=== PATIENT | female | born 1990 | race Caucasian/White ===

== ENCOUNTER → 2023-02-09 11:22 | Outpatient (CLI) | payer OTHER, MEDICAID, SELFPAY ==
[2023-02-09 11:47] LABS: Add Manual Diff / Slide Review NO; Basophils Absolute Auto 100 /uL (0-100); Basophils Percent Auto 0.5 % (0-2); Eosinophils Absolute Auto 100 /uL (0-450); Eosinophils Percent Auto 0.5 % (2-4); Hematocrit 36.8 % (36-46); Hemoglobin 12.8 g/dL (12.0-16.0); Lymphocytes Absolute Auto 2600 /uL (1100-4500); Lymphocytes Percent Auto 21.2 % (25-40); Mean Corpuscular HGB Conc 34.8 % (30-36); Mean Corpuscular Hemoglobin 31.3 PG (26-34); Monocytes Absolute Auto 600 /uL (0-900); Monocytes Percent Auto 5.1 % (3-14); Neutrophils Absolute Auto 9100 /uL (1500-7000); Neutrophils Percent Auto 72.7 % (50-75); Platelet Count 303 X10^3/uL (150-400); Red Blood Cell Count 4.09 X10^6/uL (4.0-5.2); Red Cell Distribution Width 13.8 % (11.6-14.8); White Blood Cell Count 12.5 X10^3/uL (4.5-11.0)
[2023-02-09 16:34] LABS: Hepatitis B Surface Antigen NEGATIVE s/c (NEGATIVE); Rubella Antibody IgG 10.5 IU/mL (>15)
[2023-02-09 16:48] LABS: HIV 1 & 2 Ab/Ag 4th Gen Combo NEGATIVE (NEGATIVE); Hep C Virus Ab w/Reflex Quant NEGATIVE s/c (NEGATIVE)
[2023-02-10 07:51] LABS: RPR Screen Non Reactive (Non Reactive)
[2023-02-10 10:13] LABS: Varicella IgG Antibody 1129 index (Immune >165)
== END ==
PROVIDERS: Referring Provider Obstetrics & Gynecology; Visit Provider Obstetrics & Gynecology
DX: Z34.80 Encounter for supervision of other normal pregnancy, unspecified trimester (principal)
CPT/HCPCS: 36415; 80055; 86787; 86803; 86850; 86900; 86901; 87086; 87389

== ENCOUNTER → 2023-02-24 10:18 | Outpatient (CLI) | payer OTHER, MEDICAID, SELFPAY ==
--- NOTE | 2023-02-24 10:21 | DI.US.S_ITS ---
PROCEDURE: US OB >= 14 WEEKS FETUS INDICATIONS: ANATOMY OUTSIDE/PRIOR DATING DATA: Last menstrual period (LMP): 10/08/2022. LMP-based estimated date of delivery (MARCIAL): 07/15/2023 The calculations are made using the clinical MARCIAL of 07/15/2023. TECHNIQUE: Real-time scanning was performed of the fetus, with image documentation and biometric measurements. Endovaginal scanning: Not performed COMPARISON: None. FINDINGS: General: A single living intrauterine gestation is present. Presentation: Oblique with head towards the right upper quadrant. Placenta: Placental position is posterior , without previa. Amniotic fluid index: 13.5 cm, normal range is 5-24 cm. Single deepest vertical pocket is 3.9 cm. heart rate: 132 beats per minute. Maternal cervical canal: 4.2 cm long. Normal lower limit is 2.5 cm. biometrics: Biparietal diameter: 4.6 centimeters, 19 weeks and 5 days Head circumference: 17.5 centimeters, 20 weeks and 0 days Abdominal circumference: 15.6 centimeters, 20 weeks and 6 days Femur length: 3.0 centimeters, 19 weeks and 2 days Clinically estimated gestational age: 19 weeks and 6 days Composite gestational age from present scan: 20 weeks and 0 days Estimated weight and percentile: 330 grams, 58th percentile Anatomic survey: Neuro: Ventricles are non-dilated at less than 10 mm. Cisterna magna is normal at 3-11 mm. Cerebellum is normal in size and morphology. Nuchal skin fold: Normal at less than 6 mm between 14-21 weeks gestational age. Face: Nose and lips, facial profile are normal. Spine: No evidence for spina bifida. Heart: 4-chambered heart is present, with normal ventricular outflow tracts. Diaphragm: Diaphragm is intact. Stomach: Left-sided stomach is present. Kidneys: No hydronephrosis. Normal is less than 5 mm in 2nd trimester, less than 7 mm in 3rd trimester. Cord: 3-vessel cord has orthotopic insertion. Bladder: Normal in size. Extremities: All 4 extremities identified. IMPRESSION: 1. Single live intrauterine at 20 weeks and 0 days. 2. Normal anatomic survey. We strive to produce accurate, complete, and clear reports of imaging services. To assist us in improving patient care, this report was composed using standard report templates and voice recognition software. Therefore, it may contain abnormal punctuation, insertions and/or omissions. Occasional wrong-word or sound-alike substitutions may occur. Though we review the report and make efforts to correct it, we do recommend that the report be read carefully in proper context to recognize any text inaccuracies. Dictated by: Baltazar Castano M.D. on 02/24/2023 at 15:15 Approved by: Baltazar Castano M.D. on 02/24/2023 at 15:19
== END ==
PROVIDERS: Referring Provider Student in an Organized Health Care Education/Training Program; Visit Provider Student in an Organized Health Care Education/Training Program
DX: Z34.82 Encounter for supervision of other normal pregnancy, second trimester (principal); Z3A.20 20 weeks gestation of pregnancy
CPT/HCPCS: 76811

== ENCOUNTER → 2023-04-14 07:33 | Outpatient (CLI) | payer OTHER, SELFPAY ==
[2023-04-14 08:58] LABS: Hematocrit 35.2 % (36-46); Hemoglobin 11.9 g/dL (12.0-16.0)
[2023-04-14 09:30] LABS: GTT (PREG) 1 Hour PP 50gm Dose 151 mg/dL (76-139)
== END ==
PROVIDERS: Referring Provider Student in an Organized Health Care Education/Training Program; Visit Provider Student in an Organized Health Care Education/Training Program
DX: Z34.80 Encounter for supervision of other normal pregnancy, unspecified trimester (principal)
CPT/HCPCS: 36415; 82950; 85014; 85018

== ENCOUNTER → 2023-04-21 07:57 | Outpatient (CLI) | payer OTHER, SELFPAY ==
[2023-04-21 09:53] LABS: Glucose 1 Hour Gest 159 mg/dL (76-180)
[2023-04-21 12:36] LABS: Glucose Tol Interp,Gestational INTERPRETATION
[2023-04-21 12:41] LABS: Glucose 2 Hour Gest 125 mg/dL (76-155)
[2023-04-21 14:06] LABS: Glucose 3 Hour Gest 60 mg/dL (76-140)
[2023-04-21 14:16] LABS: Glucose Fasting Gestational 84 mg/dL (76-95)
== END ==
PROVIDERS: Referring Provider Student in an Organized Health Care Education/Training Program; Visit Provider Student in an Organized Health Care Education/Training Program
DX: O99.810 Abnormal glucose complicating pregnancy (principal)
CPT/HCPCS: 82951; 82952

== ENCOUNTER → 2023-06-18 16:34 | Outpatient (CLI) | payer OTHER, SELFPAY ==
[2023-06-20 11:03] LABS: Strep Grp B PCR NEG for Grp B Strep
== END ==
PROVIDERS: Visit Provider Obstetrics & Gynecology
DX: Z34.83 Encounter for supervision of other normal pregnancy, third trimester (principal); Z3A.36 36 weeks gestation of pregnancy
CPT/HCPCS: 87653

== ENCOUNTER 2023-06-28 17:39 | Outpatient (CLI) | payer OTHER, SELFPAY ==
[2023-06-28] MEDS: ACETAMINOPHEN 325 MG TABLET 650 MG PO (18:24)
== END 2023-06-28 19:38 | disposition home or self-care (01) ==
LOC: OB 06-30 06:17
PROVIDERS: Referring Provider Obstetrics & Gynecology; Visit Provider Obstetrics & Gynecology
DX: O21.9 Vomiting of pregnancy, unspecified (principal); O26.893 Other specified pregnancy related conditions, third trimester; R19.7 Diarrhea, unspecified; Z3A.37 37 weeks gestation of pregnancy
CPT/HCPCS: 59025; 96360; G0378; G0379

== ENCOUNTER 2023-07-07 22:02 | Inpatient (IN) | payer OTHER, SELFPAY ==
[2023-07-07] MEDS: fentaNYL 100 MCG/2 ML INJ 50 MCG IV (22:29)
[2023-07-07 22:41] LABS: Add Manual Diff / Slide Review NO; Basophils Absolute Auto 100 /uL (0-100); Basophils Percent Auto 0.5 % (0-2); Eosinophils Absolute Auto 100 /uL (0-450); Eosinophils Percent Auto 0.3 % (2-4); Hematocrit 41.5 % (36-46); Hemoglobin 14.2 g/dL (12.0-16.0); Lymphocytes Absolute Auto 4500 /uL (1100-4500); Lymphocytes Percent Auto 21.4 % (25-40); Mean Corpuscular HGB Conc 34.2 % (30-36); Mean Corpuscular Hemoglobin 31.4 PG (26-34); Mean Corpuscular Volume 91.7 fL (80-100); Monocytes Absolute Auto 1500 /uL (0-900); Monocytes Percent Auto 7.1 % (3-14); Neutrophils Absolute Auto 14900 /uL (1500-7000); Neutrophils Percent Auto 70.7 % (50-75); Platelet Count 326 X10^3/uL (150-400); Red Blood Cell Count 4.52 X10^6/uL (4.0-5.2); Red Cell Distribution Width 13.6 % (11.6-14.8); White Blood Cell Count 21.1 X10^3/uL (4.5-11.0)
--- NOTE | 2023-07-07 23:14 | P.HPOB_ITS ---
OB HPI Date/Time Date of admission: 07/07/23 Date Patient Seen: 07/07/23 Time Patient Seen: 23:14 History of Present Condition Chief complaint: observation of labor MARCIAL Calculator 2 Estimated Delivery Date Method Current WG Current Estimate 07/15/23 LMP (Certain) 39w 0d Other Estimates 07/18/23 Ultrasound #1 38w 4d Estimated Gestational Age (weeks): 38+6 : 4 Para: 1 care: good care, initiated at week # (7), number of visits (7) and pounds weight gain (47) Dating criteria OB: LMP confirmed by 1st trimester US Ultrasounds: normal 1st trimester US and normal mid trimester US Obstetrical complications: none Medical complications OB: none Preadmission Labs Last OB Lab Results: 2 Blood Type O Positive 07/07/23 22:10 Antibody Screen Negative 07/07/23 22:10 Hematocrit 41.5 % (36-46) 07/07/23 22:10 Hemoglobin 14.2 g/dL (12.0-16.0) 07/07/23 22:10 Hepatitis B Surface Antigen Negative s/c (NEGATIVE) 02/09/23 11 :36 Hepatitis C Antibody Negative s/c (NEGATIVE) 02/09/23 11:36 Rubella Antibody 10.5 IU/mL (>15) L 02/09/23 11:36 Varicella-Zoster IgG Antibody 1129 index (Immune >165) 02/09/23 11:36 Glucose 1 Hour 151 mg/dL (76-139) H 04/14/23 08:44 Group B Streptococcus (PCR) Neg for grp b strep 06/18/23 16:34 -: PAP smear: Normal (2020) Prior (ies) Past Pregnancies Del. Date GA/Weeks Labor Lgth Wt Sex Route Outcome Anesthesia Place Delv Breastfeed Preg Comp Name 06/03/19 9 spontaneous 01/02/20 7 spontaneous 03/31/21 39 4 6 lb 6 oz Female vaginal live - full ter m epidural [place], [place] pumped 6 months other Ste[place] Delivery Date: 06/03/19 Last Updated by: Whitney Ramirez RN missed AB, needed D&C, then hysteroscopy w/ adhesions Delivery Date: 01/02/20 Last Updated by: Whitney Ramirez RN Needed miso to pass, pathology showed Down's Delivery Date: 03/31/21 Last Updated by: Whitney Ramirez RN suspected IUGR, although normal wt Evaluation Evaluation Baseline heart rate: 125 Variability: Moderate (11-25) monitor accelerations: Present Monitor Decelerations: Variable Contraction Frequency (minutes): 3 Uterine Contraction Intensity: Strong/Firm Status: Category l Dilation (cm): 10 Effacement (%): 100 station: +2 PFSH Medical History (Updated 06/04/23 @ 16:33 by Mari Young MD) 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 Seasonal allergies Asthma Vaginal delivery Surgical History (System 02/01/23 @ 10:03 by Eri Montoya) History of carpal tunnel release of both wrists (~06/2021) [place] teeth extracted (~2021) History of hysteroscopy Family History (System 02/01/23 @ 10:03 by Eri Montoya) Father T-cell lymphoma Ulcerative colitis Mother Osteoporosis Grandfather Dementia Grandmother Dementia Parkinson's disease Grandfather Heart attack Brother Healthy adult Sister Healthy adult Social History (System 02/01/23 @ 10:03 by Eri Montoya) marital status: number of children: 1 household members: spouse and children lives independently: Yes caregiver/support person: Yes housing: house pets and animals: Yes (1 dog) education level: 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 (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 doctor) 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) current occupational exposures/hazards: Yes special serenity needs: No travel history: recent (domestic only (move from [place]) seatbelt use: always helmet use: Yes water heater temp set < 120 deg: Yes working smoke detector in home: Yes fire extinguisher in home: Yes carbon monox detector in home: Yes do you feel safe at home: Yes Smoking Status: Never smoker second hand exposure: No alcohol intake: former (stopped drinking several months prior to ) substance use type: does not use during the past year weight has: other (back to below pre-baby weight at time of conception) well-balanced diet: daily or most days daily servings fruits/ve or more times/day caffeine: Yes (1 cup coffee in AM) Type(s) of exercise: walking and bicycling (stationary bike) frequency: daily duration: 45-60 minutes/day Meds Home Medications and Allergies Home Medications Medication Instructions Recorded Confirmed Type aspirin 81 mg tablet,delayed 81 mg PO DAILY 12/23/22 07/07/23 History release (Adult Aspirin Regimen) fluticasone propionate 44 1 puff inhalation BID 12/23/22 07/07/23 History mcg/actuation HFA aerosol inhaler (Flovent HFA) fluticasone propionate 50 1 spray intranasal BID PRN 12/23/22 07/07/23 History mcg/actuation nasal spray,suspension (Flonase Allergy Relief) vit no.95-ferrous 1 tab PO DAILY 12/23/22 07/07/23 History fumarate 28 mg-folic acid 800 mcg tablet ( Multivitamins) buspirone 5 mg tablet 5 mg PO BID #60 tabs 05/17/23 07/07/23 Rx Allergies Allergy/AdvReac Type Severity Reaction Status Date / Time No Known Drug Allergies Allergy Unverified 07/07/23 13:07 OB Exam Narrative Exam Narrative: Generally: Patient is very uncomfortable with contractions. Lying on her side, having epidural placed Fundal height: 38 cm Estimated weight: 7 lb Extremities: Trace edema Objective Labs 07/07/23 22:10 Labs: Laboratory Results - last 24 hr 07/07/23 22:10 WBC 21.1 H RBC 4.52 Hgb 14.2 Hct 41.5 MCV 91.7 MCH 31.4 MCHC 34.2 RDW 13.6 Plt Count 326 Neut % (Auto) 70.7 Lymph % (Auto) 21.4 L [place] % (Auto) 7.1 Eos % (Auto) 0.3 L Baso % (Auto) 0.5 Neut # (Auto) 04695 H Lymph # (Auto) 4500 [place] # (Auto) 1500 H Eos # (Auto) 100 Baso # (Auto) 100 Assessment and Plan Assessment and Plan Assessment and Plan narrative: Assessment: 32-year-old 4 para 1 at 38-,6/7 weeks gestation in active labor entering second stage Plan: Expected management to spontaneous vaginal delivery Time Spent with Patient Total time spent with greater than 50% in coordination of care (as documented) at patient's floor/unit and/or counseling patient:: Greater than 35 minutes
--- NOTE | 2023-07-07 23:36 | PM.AN.REGBLK ---
Regional Block Pre-procedure PMH/ROS narrative: Asthma has not needed rescue inhaler for quite a long while per patient ASA Class: II Labs: Hct 41.5 % (36-46) 07/07/23 22:10 Plt Count 326 X10^3/uL (150-400) 07/07/23 22:10 Medications: Current Medications Generic Name Dose Route Start Last Admin Trade Name Freq PRN Reason Stop Dose Admin Carboprost Tromethamine 250 mcg 07/07/23 22:23 Carboprost 250 Mcg/Ml Ampul IM Q90M PRN Bleeding Fentanyl 50 mcg 07/07/23 22:24 Fentanyl 100 Mcg/2 Ml Inj IV Q1H PRN Pain, Severe (7-10) Oxytocin/Lactated Ringer's 30 unit in 500 mls @ 200 mls/hr 07/07/23 22:23 Oxytocin Premix IV CONT PRN Bleeding Protocol Tranexamic Acid 1,000 mg/ 100 mls @ 200 mls/hr 07/07/23 22:23 Sodium Chloride IV NOW PRN Bleeding Lactated Ringer's 1,000 mls @ 100 mls/hr 07/07/23 22:30 Lactated Ringers IV CONT REGI Lidocaine HCl 20 ml 07/07/23 22:23 Lidocaine 1% 20 Ml INJ INTRA-OP PRN Post Delivery Methylergonovine Maleate 0.2 mg 07/07/23 22:23 Methylergonovine 0.2 Mg Tablet PO Q6HR PRN Heavy Bleeding Methylergonovine Maleate 0.2 mg 07/07/23 22:23 Methylergonovine 0.2 Mg/Ml Vial IM NOW PRN Bleeding Misoprostol 800 mcg 07/07/23 22:23 Misoprostol 200 Mcg Tablet NJ NOW PRN Bleeding Misoprostol 400 mcg 07/07/23 22:23 Misoprostol 200 Mcg Tablet SL NOW PRN Bleeding Naloxone HCl 0.2 mg 07/07/23 22:23 Naloxone 0.4 Mg/Ml Vial IV Q2MIN PRN Opiate Reversal Oxytocin 10 unit 07/07/23 22:23 Oxytocin 10 Unit/Ml Vial IM NOW PRN Bleeding Allergies: Allergies Allergy/AdvReac Type Severity Reaction Status Date / Time No Known Drug Allergies Allergy Unverified 07/07/23 13:07 Procedure Insertion date: 07/07/23 Insertion time: 01:05 Prep/Local: 1% lidocaine (chloroprep) Interspace: L3-4 Patient position: lateral Needle: 18 gauge Hustead (CSE 25g pencan .3cc .25%marciane) Loss of resistance with: saline DENZEL at (cm): 7 Catheter placed at SKIN (cm): 12 Catheter in SPACE (cm): 5 Insertion: Yes CSF, No Blood, No Paresthesia with insertion, No Paresthesia with injection and No Test dose reaction Initial Medications TEST DOSE time: 10:55 TEST DOSE: 1.5% lidocaine with epinephrine 1:200k (mL): 3 BOLUS DOSE time: 11:10 BOLUS DOSE (mL): 5 BOLUS DOSE med: other (0.5% bupivicaine) Infusion INFUSION: 0.125% bupivacaine and with fentanyl 2 mcg/mL Initial rate (mL/hr): 12 Post-procedure Anesthesia date START: 07/07/23 Anesthesia time START: 10:30 Anesthesia date END: 07/07/23 Anesthesia time END: 11:47 Post-procedure Anesthesia Assessment: Yes CV function: HR/BP stable, Yes Resp function: RR/sat/airway adequate, Yes Post-op hydration adequate, Yes Pain control adequate, Yes Nausea & vomiting absent, Yes Temperature > 36 C and Yes Mental status appropriate
[2023-07-08 00:18] VITALS: BP 129/68
--- NOTE | 2023-07-08 00:24 | PM.OBPRVD ---
Labor & Delivery Delivery date: 07/07/23 Intrapartal Events: Deceleration (down to 70's with pushing) Cervical ripening method: none Induction method: none Delivery monitor: external FHT and external uterine Route of delivery: and vacuum extraction (FHR in the 70's, vertex at +3 station) Indication for instrumentation: nonreassuring FHR tracing Episiotomy description: None L&D Laceration Description: None Quantitative Blood Loss: 200 Anesthesia Type: Spinal and Epidural Complications: None Narrative: Patient complete and pushed x 3 contractions. A vacuum was placed due to decel down to 70's with pushing. With one pull, the vertex was delivered over an intact perineum at 2335. No nuchal cord. The remainder of the body delivered without difficulty and was placed on mom's abdomen. Pitocin was given in the IVF's. The cord was double clamped and cut after it stopped pulsing. Cord bloods were obtained. The placenta delivered intact with a 3 Vessel cord at 2344. The fundus was massaged to firm. No lacerations noted. Apgars 9 at 1 minute and 9 at 5 minutes. . QBL: 200cc. Epidural/Spinal. Mom and stable to recovery. [place] Baby 1: gender: Male Presentation: vertex Position: Left Occiput Anterior Placenta delivery description: Spontaneous Cord Vessel Description: 3 Vessels score (1 min): 9 score (5 min): 9 weight: 7 lb 13.7 oz Plan for aftercare: Routine care
[2023-07-08] MEDS: IBUPROFEN 600 MG TABLET PO ×3 (04:19→16:18)
[2023-07-08] MEDS: DOCUSATE 100 MG CAPSULE PO (09:52)
[2023-07-08] MEDS: PRENATAL VIT,CALC/IRON/FOLIC 1 TABLET 1 TAB PO (09:52)
[2023-07-08] MEDS: ACETAMINOPHEN 325 MG TABLET 650 MG PO ×2 (09:52→16:19)
--- NOTE | 2023-07-11 17:54 | PM.OBDS.1 ---
Discharge Providers Provider Date of admission: 07/07/23 22:02 Discharge Date: 07/08/23 Primary care physician: Doctor Perla MD Consults: 07/07/23 22:23 Consult to Anesthesiology Urgent Comment: Consulting Provider: Anesthesiologist Reason for consultation: Epidural Discharge provider: Ana Medina MD Summary Hospital Course Date Patient Seen: 07/08/23 Time Patient Seen: 17:00 Diagnoses: 38+6 weeks gestation Precipitous labor and delivery Spontaneous vaginal delivery Hospital Course: Patient is a 32 year old who presented on 07/07/23 in active labor at 7-8 cm dilated. She received an epidural/spinal for pain management. She ruptured membranes during the epidural. Once she was comfortable, she began pushing. During pushing, the FHR dropped to the 70's. A vacuum was placed and baby delivered with one push. The remainder of the delivery was uncomplicated. Her course was unremarkable and she was discharged to home on 07/08/23. Peripartum Data Infant Delivery Method: Assisted Delivery (vacuum) Laceration Description: None Episiotomy description: None Procedures: Spinal/epidural analgesia Vacuum assisted vaginal delivery complications: none 1: Gender: Male Disposition of : home Status at Discharge Cognitive/behavioral status at discharge: oriented Functional status at discharge: independent ambulation Overall status at discharge: patient is progressing back to baseline Time Spent with Patient Time attestation: Total time spent providing and/or coordinating discharge services: Time spent: Less than 30 minutes Objective Labs 07/07/23 22:10 Exam Narrative Exam Narrative: Gen: NAD Fundus: Firm U/-1 Ext: Trace edema, negative Anson's Discharge Plan Discharge Plan Patient Disposition: Home Provider Discharge Comment: Please review the written instructions you received when you were discharged from the hospital. Your follow-up appointment with Dr. Medina will be in 6 weeks and we look forward to seeing you then. If however in the meanwhile you have any questions, concerns, or other issues, please contact the office either by phone at [phone], or via the patient portal. Discharge orders & Medications Prescriptions: Continued buspirone 5 mg tablet 5 mg PO BID Qty: 60 1RF fluticasone propionate [Flovent HFA] 44 mcg/actuation HFA aerosol inhaler 1 puff inhalation BID Rx Instructions: administer with spacer fluticasone propionate [Flonase Allergy Relief] 50 mcg/actuation spray,suspension 1 spray intranasal BID PRN Rx Instructions: administer into each nostril PNV cmb#95-ferrous fumarate-FA [ Multivitamins] 28 mg iron- 800 mcg tablet 1 tab PO DAILY aspirin [Adult Aspirin Regimen] 81 mg tablet,delayed release (DR/EC) 81 mg PO DAILY Follow up/Referrals: Ana Medina MD [Physician] - 08/20/23 2:00 pm (please check in at 1:45pm. ) Discharge Health Status Multidrug resistant organism: No MDRO Diet/Activity/Treatments Diet: Diet as Tolerated Activity: As tolerated Other treatments: [id number] Tylenol and/or ibuprofen may be used for additional pain relief. [id number] stool softeners and/or MiraLax may be used as needed for constipation. Skin/Wound/Dressing Care Report to your healthcare provider any signs of infection, such as:: chills, fever, increased pain, unusual drainage and unusual redness Dressing: N/A Visit Report/Discharge Packet Instructions: DI for Labor and Delivery, Vaginal , DI for and Nipple Soreness Stand Alone Forms: Discharge: Care Discharge Data Primary Care Provider: Miscellaneous,Doctor
== END 2023-07-08 18:40 | disposition home or self-care (01) | DRG 807 ==
PROVIDERS: Admitting Provider Obstetrics & Gynecology; Referring Provider Obstetrics & Gynecology; Visit Provider Obstetrics & Gynecology
DX: O76 Abnormality in fetal heart rate and rhythm complicating labor and delivery (principal); Z37.0 Single live birth; Z3A.39 39 weeks gestation of pregnancy; O62.3 Precipitate labor
CPT/HCPCS: 36415; 59050; 59400; 59409; 85025; 86850; 86900; 86901; G0379; J3010

== ENCOUNTER → 2023-11-30 12:57 | Outpatient (CLI) | payer OTHER, SELFPAY ==
[2023-11-30 13:42] LABS: Hematocrit 42.1 % (36-46); Hemoglobin 14.3 g/dL (12.0-16.0); Mean Corpuscular HGB Conc 33.9 % (30-36); Mean Corpuscular Hemoglobin 30.2 PG (26-34); Mean Corpuscular Volume 89.1 fL (80-100); Platelet Count 336 X10^3/uL (150-400); Red Blood Cell Count 4.72 X10^6/uL (4.0-5.2); Red Cell Distribution Width 13.8 % (11.6-14.8); White Blood Cell Count 8.4 X10^3/uL (4.5-11.0)
[2023-11-30 13:53] LABS: Neutrophils Absolute Manual 4116 /uL (3000-5900); RBC Morphology Normal Morphology; Total Cells Counted 100
[2023-11-30 14:01] LABS: Erythrocyte Sedimentation Rate 7 MM/HR (0-20)
[2023-11-30 14:10] LABS: Alanine Aminotransferase 21 IU/L (<35); Albumin 4.9 g/dL (3.5-5.0); Albumin Globulin Ratio 1.7 (1.0-2.8); Alkaline Phosphatase 93 U/L (38-126); Aspartate Aminotransferase 26 IU/L (14-36); BUN Creatinine Ratio 18.2 (6-22); Bilirubin Total 0.5 mg/dL (0.2-1.3); Blood Urea Nitrogen 12 mg/dL (7-17); Calcium 9.8 mg/dL (8.4-10.2); Carbon Dioxide 26 mmol/L (22-32); Chloride 102 mmol/L (98-107); Estimated Glomerular Filt Rate > 60 mL/min (>60); Globulin 2.9 g/dL (1.7-4.1); Glucose 93 mg/dL (70-100); HEMOLYSIS < 15 (0-50); Potassium 4.4 mmol/L (3.4-5.1); Sodium 139 mmol/L (137-145); Total Protein 7.8 g/dL (6.3-8.2)
[2023-11-30 14:54] LABS: TSH w/ Reflex to FT4 1.27 uIU/mL (0.47-4.68)
== END ==
LOC: LAB 12:58
PROVIDERS: PCP Family Medicine; Referring Provider Family Medicine; Visit Provider Family Medicine
DX: R59.9 Enlarged lymph nodes, unspecified (principal); R53.83 Other fatigue
CPT/HCPCS: 36415; 80053; 84443; 85025; 85651

== ENCOUNTER → 2024-02-14 15:47 | Outpatient (CLI) | payer OTHER, SELFPAY | PROVIDERS: PCP Family Medicine; Referring Provider Internal Medicine; Visit Provider Internal Medicine | DX: Z23 Encounter for immunization (principal) | CPT/HCPCS: 90471; 90656 ==

== ENCOUNTER → 2024-02-14 15:55 | Outpatient (CLI) | payer OTHER, SELFPAY ==
[2024-02-14 16:45] LABS: Influenza A - CEPHEID Flu A NEGATIVE (NEGATIVE); Influenza B - CEPHEID Flu B NEGATIVE (NEGATIVE); Respiratory Syncytial Virus Negative (Negative)
[2024-02-14 16:48] LABS: COVID-19 CEPHEID 4-PLEX PCR Negative (Negative)
== END ==
PROVIDERS: PCP Family Medicine; Visit Provider Family Medicine
DX: R06.02 Shortness of breath (principal); R05.1 Acute cough
CPT/HCPCS: 0241U

== ENCOUNTER → 2024-03-28 12:17 | Outpatient (CLI) | payer OTHER, SELFPAY ==
--- NOTE | 2024-03-28 12:20 | DI.RAD.S_ITS ---
PROCEDURE: XR LUMBAR SPINE 2-3V INDICATIONS: low back pain with paresthesias TECHNIQUE: 3 views of the lumbar spine were acquired. COMPARISON: None. FINDINGS: Bones: 5 [id number] vertebrae are present. There is normal bony alignment. Mild osteophytosis is present at L3-4. A limbus vertebra is present at L2-3. Mild anterior wedging and Schmorl's node is present at the superior L1 endplate. No vertebral body compression fractures. No suspicious bony lesions. Soft tissues: Overlying bowel gas pattern is normal. No suspicious soft tissue calcifications. An IUD is projected over the mid pelvis. IMPRESSION: Degenerative change. Anterior wedging at L1 is likely chronic in nature given the presence of a Schmorl's node. However, if there is a history of recent trauma, acute compression deformity could be considered in the differential. Dictated by: Toshia Walsh M.D. on 03/28/2024 at 15:14 Approved by: Toshia Walsh M.D. on 03/28/2024 at 15:15
== END ==
LOC: RAD 12:19
PROVIDERS: Family Provider Family Medicine; PCP Family Medicine; Referring Provider Family Medicine; Visit Provider Family Medicine
DX: M47.816 Spondylosis without myelopathy or radiculopathy, lumbar region (principal); M51.46 Schmorl's nodes, lumbar region; M54.50 Low back pain, unspecified
CPT/HCPCS: 72100

== ENCOUNTER → 2024-04-19 12:53 | Outpatient (CLI) | payer OTHER, SELFPAY ==
--- NOTE | 2024-04-19 12:54 | DI.MRI.S_ITS ---
PROCEDURE: MR LUMBAR SPINE WO CON INDICATIONS: L1 anterior wedging, r/o vertebral compression fracture TECHNIQUE: Noncontrast sagittal T1 spin echo and T2 fast echo, sagittal STIR, and T2 fast spin echo through the lumbar spine. In cases with scoliosis, additional coronal T2 fast spin echo may be performed. COMPARISON: [facility], CR, XR LUMBAR SPINE 2-3V, 03/28/2024, 12:24. FINDINGS: Image quality: Excellent. Alignment and Curvature: There is normal bony alignment. Bone Marrow: Marrow is of normal overall signal. No acute vertebral body compression fractures. Mild anterior superior endplate Schmorl's node with mild wedging appearance to the L1 vertebral body without any edema or other signs of fracture. Spinal Cord: Conus medullaris terminates at the L1-L2 level. Visualized cord demonstrates normal signal and size. Paraspinous Soft Tissues: No paravertebral masses. T12-L1: Normal appearance. L1-L2: Normal appearance. L2-L3: Normal appearance. L3-L4: Normal appearance. L4-L5: Normal appearance. L5-S1: Normal appearance. IMPRESSION: No acute compression fracture or significant degenerative finding. Dictated by: Joel Fox M.D. on 04/19/2024 at 17:48 Approved by: Joel Fox M.D. on 04/19/2024 at 17:52
== END ==
PROVIDERS: Family Provider Family Medicine; PCP Family Medicine; Referring Provider Family Medicine; Visit Provider Family Medicine
DX: S32.010A Wedge compression fracture of first lumbar vertebra, initial encounter for closed fracture (principal)
CPT/HCPCS: 72148

== ENCOUNTER 2024-06-21 09:00 | Outpatient (RCR) | payer OTHER, SELFPAY ==
--- NOTE | 2024-03-22 12:14 | PT.OIE ---
Current Diagnoses Pain in right knee (03/22/24) Pain in thoracic spine (03/22/24) Dorsalgia, unspecified (03/22/24) Weakness (03/22/24) Past Medical History (This Medical Record has been edited. 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 Action required.) History of carpal tunnel release of both wrists (~06/2021) History of hysteroscopy Corn teeth extracted (~2021) Visit Care Team Role Provider Type Era Nuno MD Attending Provider Physician Family Provider Primary Care Provider Referring Provider Specialty: Family Practice QUALITY MEASUREMENT SPECIALIST Address: [address] [place] [address], [phone] Fax: Email: [email or web address] Physical Therapy Initial Evaluation PT-OP-A Visit Information Start: 03/16/24 14:07 Freq: Status: Active Protocol: Document 03/22/24 09:01 [facility] (Rec: 03/22/24 12:02 [facility] [id number]) Out-Patient Physical Therapy Visit Information Visit Information Visit Type Initial Evaluation Visit Note 60 visits per year Visit Start Time 09:02 Visit Stop Time 09:50 Visit Number 1 Number of PRODUCT MANAGEMENT INTERNSHIP Visits 0 PT-OP-B Current Condition Start: 03/16/24 14:07 Freq: Status: Active Protocol: Document 03/22/24 09:01 [facility] (Rec: 03/22/24 09:50 [facility] [id number]) Current Condition History of Current Condition History of Current Condition Pt reports when kay stands and charts she always has an annoying feeling in LB. SHe is sitting on the floor w/the kids and its hard to do good positioning. She did an 8 week post core class and feels liek that helped. DOesn' t feel like she has a diastasis. She had bad back pain pain w/BLE pain during . She has an annoying buzzing in L glute since. She has an IUD and hasn't bled. She had her period and had awful bakc pain. She does yoga 2x/week. She sits at a yoga ball to chart. She tries to work on posture. USed to be a runner. During training for a 1/2 marathon R knee pain and lat ITB> She tried dry needling that was helpful. She is no longer breast feeding for past 2 months. She has done some OMT that helped. She has an 8 month old and 3 year old. Back pain never went back to normal after 1 year old. Vaginal births for both w /o complications. No tearing. Denies incontinence. Has bladder prolapse. Bought an [employer] pelvic floor sharepoint trainer that hasn't used yet. Hemroids 2nd time. R knee bothers her if tries to run and starts as slight ache then goes to sharp pain. Treatment Goals Patient/Caregiver Goals Running, standing at work, sitting playing w/kids PT-OP-C Subjective Start: 03/16/24 14:07 Freq: Status: Active Protocol: Document 03/22/24 09:01 [facility] (Rec: 03/22/24 09:50 [facility] [id number]) OP-PT Pain Assessment Location LBP Pain Location Details LBP Intensity 3 Scale Used Numeric (0 - 10) Description Aching Description- Other 5/10 when on period Frequency Intermittent Other Pain Aggravating Factors sit on floor, standing, Other Pain Alleviating Factors movement, yoga, walking, core work PT-OP-G Mobility & Gait Start: 03/16/24 14:07 Freq: Status: Active Protocol: Document 03/22/24 09:01 [facility] (Rec: 03/22/24 09:50 [facility] [id number]) OP Gait Assessment Comments Gait Comments dec stance time on RLE w/lat shear of pelvis; more notable w/running PT-OP-J Posture/Palpation/Skin Start: 03/16/24 14:07 Freq: Status: Active Protocol: Document 03/22/24 09:01 [facility] (Rec: 03/22/24 09:50 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 (Rec: 03/22/24 09:50 [facility] [id number]) Lumbar Spine Range of Motion Lumbar Spine Active Percentage Flexion 50 Extension 75 Rotation Left 50 Rotation Right 75 Lateral Flexion Left 40 Lateral Flexion Right 50 Comments hinge L2, pain spine R SB PT-OP-L Special Tests Start: 03/16/24 14:07 Freq: Status: Active Protocol: Document 03/22/24 09:01 [facility] (Rec: 03/22/24 09:50 [facility] [id number]) Special Tests Lumbar Spine Special Tests march Test Results positive obers Test Results positive B (R>L) Straight Leg Raise Test Results R>L flexibility but both >90 deg Fredy Test Results R hip flexor and RF tightness Slump Test Results neg B, ext sit more tension R PT-OP-M Strength Start: 03/16/24 14:07 Freq: Status: Active Protocol: Document 03/22/24 09:01 [facility] (Rec: 03/22/24 09:50 [facility] [id number]) Hip Strength Hip Manual Muscle Testing Right Flexion (L2) 4- Good- Extension (S1) 4 Good Abduction 4- Good- Adduction 4- Good- External Rotation 5 Normal Internal Rotation 5 Normal Left Flexion (L2) 3+ Fair+ Extension (S1) 4- Good- Abduction 4+ Good+ Adduction 5 Normal External Rotation 5 Normal Internal Rotation 5 Normal Knee Strength Knee Manual Muscle Testing Right Flexion (S2) 4 Good Extension (L3) 5 Normal Left Flexion (S2) 5 Normal Extension (L3) 5 Normal Ankle/Foot Strength Ankle and Foot Manual Muscle Testing Right Dorsiflexion (L4) 5 Normal Plantarflexion (S1) 5 Normal Left Dorsiflexion (L4) 5 Normal Plantarflexion (S1) 5 Normal Comments PF tested seated PT-OP-Q Treatments Start: 03/16/24 14:07 Freq: Status: Active Protocol: Document 03/22/24 09:01 [facility] (Rec: 03/22/24 12:02 [facility] [id number]) Therapeutic Exercises Standing Exercises stretch Standing Exercise Name 1. wally pose at counter 2. table pelvis drop Side bilateral Reps/Minutes 15 sec ea Self-Care/Home Management Treatment Education Other Education 8 min: edu re: posture restriction and how RLE restrictions could be related to her pelvis position, edu inc tightness and weakness on RLE and more notable deviation in gait. w/lat hip shear. discussed dec auto core engagement and postural position likely related to pain. PT-OP-T Assessment and Plan Start: 03/16/24 14:07 Freq: Status: Active Protocol: Document 03/22/24 09:01 [facility] (Rec: 03/22/24 09:50 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 LTG Duration 06/14/24 exercise Short Term Goal (STG) Pt will be able to walk carrying kids w/o pain greater than 1/10 STG Duration 05/04/24 Intermediate Goal (LTG) Pt will be able to return to running w/o LBP or R knee pain LTG Duration 06/14/24 activity Short Term Goal (STG) Pt will be able to sit to play with kids on ground w/o pain greater than 1/10. STG Duration 05/04/24 Shopping Investigator Goal (LTG) Pt will be able to stand as needed at work w/o pain >1/10. LTG Duration 06/14/24 Assessment Summary Assessment Pt presents w/SI and sacral and LB pain that started w/ of 1st child 3 years ago and has since had another child (8 months ago) w/ sciatic symptoms BLEs during but not evident now. She has hx of R ITB issues and pain in R knee that has stopped her from running which is a favored form of exercise . She has pain w/standing at work, sitting w/her kids and w /carrying her kids. 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 Dec automatic core response and poor postural alignment w/dec alignment of diaphram over pelvic floor likely limiting the stability of her spine. She would benefit from skilled PT to address these deficits and improve her function to allow her to do typical activities w/o pain and return to running. Physical Therapy Plan Frequency and Duration Frequency of Treatment 1-2x/wk Duration of treatment (weeks) 12 Plan of Care Start Date 03/22/24 Plan of Care End Date 06/14/24 Therapeutic Interventions Therapeutic Interventions Balance Training,Gait Training ,Home Exercise Program,Joint Mobilizations,Manual Therapy, Neuromuscular Re-education, Patient/Caregiver Education, Self-Care/Home Management,Soft Tissue Mobilization,Taping, Therapeutic Activities, Therapeutic Exercises Modalities Cold Pack/Ice Massage,Electric Stimulation,Hot Packs Next Visit Focus/Plan Next Note Type Treatment Note Next Visit Plan review stretches as needed, PNF for LE facilitation, innominate and sacral mobilizations, coccyx assessment and mobilization, STM to back and glutes and ITB and teach self release for glutes and ITB and quad, visceral mobs, work on release to improve alignment of spine in standing check performance w/common core exercises to assess pt form
--- NOTE | 2024-03-29 12:12 | PT.OTN ---
Current Diagnoses Pain in right knee (03/29/24) Pain in thoracic spine (03/29/24) Dorsalgia, unspecified (03/29/24) Weakness (03/29/24) Physical Therapy Treatment Note PT-OP-A Visit Information Start: 03/16/24 14:07 Freq: Status: Active Protocol: Document 03/29/24 11:30 [facility] (Rec: 03/29/24 12:12 [id number]) Out-Patient Physical Therapy Visit Information Visit Information Visit Type Treatment Note Visit Note 60 visits per year Visit Start Time 11:30 Visit Stop Time 12:10 Visit Number 2 Number of PRODUCE LABORER Visits 0 Precautions Precautions Lumbar x-ray 03/28/24: Degenerative change. Anterior wedging at L1 is likely chronic in nature given the presence of a Schmorl's node. However, if there is a history of recent trauma, acute compression deformity could be considered in the differential. PT-OP-B Current Condition Start: 03/16/24 14:07 Freq: Status: Active Protocol: Document 03/22/24 09:01 [facility] (Rec: 03/22/24 09:50 [facility] [id number]) Current Condition History of Current Condition History of Current Condition Pt reports when kay stands and charts she always has an annoying feeling in LB. SHe is sitting on the floor w/the kids and its hard to do good positioning. She did an 8 week post core class and feels liek that helped. DOesn' t feel like she has a diastasis. She had bad back pain pain w/BLE pain during . She has an annoying buzzing in L glute since. She has an IUD and hasn't bled. She had her period and had awful bakc pain. She does yoga 2x/week. She sits at a yoga ball to chart. She tries to work on posture. USed to be a runner. During training for a 1/2 marathon R knee pain and lat ITB> She tried dry needling that was helpful. She is no longer breast feeding for past 2 months. She has done some OMT that helped. She has an 8 month old and 3 year old. Back pain never went back to normal after 1 year old. Vaginal births for both w /o complications. No tearing. Denies incontinence. Has bladder prolapse. Bought an pelvic floor industrial trainer that hasn't used yet. Hemroids 2nd time. R knee bothers her if tries to run and starts as slight ache then goes to sharp pain. Treatment Goals Patient/Caregiver Goals Running, standing at work, sitting playing w/kids PT-OP-C Subjective Start: 03/16/24 14:07 Freq: Status: Active Protocol: Document 03/29/24 11:30 [facility] (Rec: 03/29/24 12:12 [facility] [id number]) OP-PT Subjective Patient Comments Patient Comments Pt how a x-ray yesterday. She thinks that changes may be from old ski injury 10 years ago. PT-OP-G Mobility & Gait Start: 03/16/24 14:07 Freq: Status: Active Protocol: Document 03/22/24 09:01 [facility] (Rec: 03/22/24 09:50 [facility] [id number]) OP Gait Assessment Comments Gait Comments dec stance time on RLE w/lat shear of pelvis; more notable w/running PT-OP-J Posture/Palpation/Skin Start: 03/16/24 14:07 Freq: Status: Active Protocol: Document 03/22/24 09:01 [facility] (Rec: 03/22/24 09:50 [facility] [id number]) Posture Evaluation Nilesh Postural Classification System Nilesh Postural Classifications Posterior/Posterior Lumbar Protective Mechanism Left AP 0 Lumbar Protective Mechanism Right AP 0 Lumbar Protective Mechanism Left PA 2 Lumbar Protective Mechanism Right PA 0 Comments Posture Comments R knee hyper ext, R toe out, inc R pronation and turn supervisor foot PT-OP-K Range of Motion Start: 03/16/24 14:07 Freq: Status: Active Protocol: Document 03/22/24 09:01 [facility] (Rec: 03/22/24 09:50 [facility] [id number]) Lumbar Spine Range of Motion Lumbar Spine Active Percentage Flexion 50 Extension 75 Rotation Left 50 Rotation Right 75 Lateral Flexion Left 40 Lateral Flexion Right 50 Comments hinge L2, pain spine R SB PT-OP-L Special Tests Start: 03/16/24 14:07 Freq: Status: Active Protocol: Document 03/22/24 09:01 [facility] (Rec: 03/22/24 09:50 [facility] [id number]) Special Tests Lumbar Spine Special Tests march Test Results positive obers Test Results positive B (R>L) Straight Leg Raise Test Results R>L flexibility but both >90 deg Fredy Test Results R hip flexor and RF tightness Slump Test Results neg B, ext sit more tension R PT-OP-M Strength Start: 03/16/24 14:07 Freq: Status: Active Protocol: Document 03/22/24 09:01 [facility] (Rec: 03/22/24 09:50 [facility] [id number]) Hip Strength Hip Manual Muscle Testing Right Flexion (L2) 4- Good- Extension (S1) 4 Good Abduction 4- Good- Adduction 4- Good- External Rotation 5 Normal Internal Rotation 5 Normal Left Flexion (L2) 3+ Fair+ Extension (S1) 4- Good- Abduction 4+ Good+ Adduction 5 Normal External Rotation 5 Normal Internal Rotation 5 Normal Knee Strength Knee Manual Muscle Testing Right Flexion (S2) 4 Good Extension (L3) 5 Normal Left Flexion (S2) 5 Normal Extension (L3) 5 Normal Ankle/Foot Strength Ankle and Foot Manual Muscle Testing Right Dorsiflexion (L4) 5 Normal Plantarflexion (S1) 5 Normal Left Dorsiflexion (L4) 5 Normal Plantarflexion (S1) 5 Normal Comments PF tested seated PT-OP-Q Treatments Start: 03/16/24 14:07 Freq: Status: Active Protocol: Document 03/29/24 11:30 [facility] (Rec: 03/29/24 12:12 [id number]) Manual Therapy Treatment Consent Patient gave verbal consent for manual Yes treatment Other Other Manual Treatments Pt in B side lying: B rib recoil, STM and positional release QL, hip rotators, vastus lateralis, TrP QL hip rotators, distal posterior vastus lateralis. TrP B anterior vastus lateralis and left hip rotators and TFL. Self-Care/Home Management Treatment Education Other Education Proper sleeping position to help with side lying position with thin pillow under ribs and PT demos flossing of lateral hip fascia for TFL, hip rotators and ITB: MWM stretch PT-OP-T Assessment and Plan Start: 03/16/24 14:07 Freq: Status: Active Protocol: Document 03/29/24 11:30 [facility] (Rec: 03/29/24 12:12 [facility] [id number]) Physical Therapy Assessment Rehab Potential Rehabilitation Potential Good Evaluation Complexity Number of Personal Factors/Comorbidities 1-2 Number of Body Systems Impaired 4 or More Clinical Presentation at Evaluation Evolving Impairments Impairments Activity Tolerance,Balance, Functional Activities, Functional Mobility,Gait,Pain, Posture,ROM,Soft Tissue Mobility,Strength Other Concerns Barriers to Rehabilitation pt has 8 month old and 3 year old which require a lot of lifting 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 LTG Duration 06/14/24 exercise Short Term Goal (STG) Pt will be able to walk carrying kids w/o pain greater than 1/10 STG Duration 05/04/24 Senior Living Goal (LTG) Pt will be able to return to running w/o LBP or R knee pain LTG Duration 06/14/24 activity Short Term Goal (STG) Pt will be able to sit to play with kids on ground w/o pain greater than 1/10. STG Duration 05/04/24 Aircraft Maintenance Director Goal (LTG) Pt will be able to stand as needed at work w/o pain >1/10. LTG Duration 06/14/24 Assessment Summary Assessment B iliac crests level pre- treatment today and left SI joint is stiff. Pt tolerates manual work well and PT provides further self-care ed today. Physical Therapy Plan Frequency and Duration Frequency of Treatment 1-2x/wk Duration of treatment (weeks) 12 Plan of Care Start Date 03/22/24 Plan of Care End Date 06/14/24 Therapeutic Interventions Therapeutic Interventions Balance Training,Gait Training ,Home Exercise Program,Joint Mobilizations,Manual Therapy, Neuromuscular Re-education, Patient/Caregiver Education, Self-Care/Home Management,Soft Tissue Mobilization,Taping, Therapeutic Activities, Therapeutic Exercises Modalities Cold Pack/Ice Massage,Electric Stimulation,Hot Packs Next Visit Focus/Plan Next Note Type Treatment Note Next Visit Plan Con't per plan: review stretches as needed, PNF for LE facilitation, innominate and sacral mobilizations, coccyx assessment and mobilization, STM to back and glutes and ITB and teach self release for glutes and ITB and quad, visceral mobs, work on release to improve alignment of spine in standing check performance w/common core exercises to assess pt form
--- NOTE | 2024-04-19 11:25 | PT.OTN ---
Current Diagnoses Pain in right knee (04/19/24) Pain in thoracic spine (04/19/24) Dorsalgia, unspecified (04/19/24) Weakness (04/19/24) Physical Therapy Treatment Note PT-OP-A Visit Information Start: 03/16/24 14:07 Freq: Status: Active Protocol: Document 04/19/24 11:19 [facility] (Rec: 04/19/24 11:25 [facility] [id number]) Out-Patient Physical Therapy Visit Information Visit Information Visit Type Progress Note Visit Note 60 visits per year Visit Start Time 09:02 Visit Stop Time 09:46 Visit Number 3 Number of NETWORK INFRASTRUCTURE ARCHITECT Visits 0 PT-OP-B Current Condition Start: 03/16/24 14:07 Freq: Status: Active Protocol: Document 03/22/24 09:01 [facility] (Rec: 03/22/24 09:50 [facility] [id number]) Current Condition History of Current Condition History of Current Condition Pt reports when kay stands and charts she always has an annoying feeling in LB. SHe is sitting on the floor w/the [employer]) and its hard to do good positioning. She did an 8 week post core class and feels liek that helped. DOesn' t feel like she has a diastasis. She had bad back pain pain w/BLE pain during . She has an annoying buzzing in L glute since. She has an IUD and hasn't bled. She had her period and had awful bakc pain. She does yoga 2x/week. She sits at a yoga ball to chart. She tries to work on posture. USed to be a runner. During training for a 1/2 marathon R knee pain and lat ITB> She tried dry needling that was helpful. She is no longer breast feeding for past 2 months. She has done some OMT that helped. She has an 8 month old and 3 year old. Back pain never went back to normal after 1 year old. Vaginal births for both w /o complications. No tearing. Denies incontinence. Has bladder prolapse. Bought an pelvic floor athletic trainer that hasn't used yet. Hemroids 2nd time. R knee bothers her if tries to run and starts as slight ache then goes to sharp pain. Treatment Goals Patient/Caregiver Goals Running, standing at work, sitting playing w/kids PT-OP-C Subjective Start: 03/16/24 14:07 Freq: Status: Active Protocol: Document 04/19/24 11:19 [facility] (Rec: 04/19/24 11:25 [facility] [id number]) OP-PT Subjective Patient Comments Patient Comments reports buzzing in r buttocks at night. MRI was denied PT-OP-G Mobility & Gait Start: 03/16/24 14:07 Freq: Status: Active Protocol: Document 03/22/24 09:01 [facility] (Rec: 03/22/24 09:50 [facility] [id number]) OP Gait Assessment Comments Gait Comments dec stance time on RLE w/lat shear of pelvis; more notable w/running PT-OP-J Posture/Palpation/Skin Start: 03/16/24 14:07 Freq: Status: Active Protocol: Document 03/22/24 09:01 [facility] (Rec: 03/22/24 09:50 [facility] [id number]) Posture Evaluation [facility] Postural Classification System [facility] Postural Classifications Posterior/Posterior Lumbar Protective Mechanism Left AP 0 Lumbar Protective Mechanism Right AP 0 Lumbar Protective Mechanism Left PA 2 Lumbar Protective Mechanism Right PA 0 Comments Posture Comments R knee hyper ext, R toe out, inc R pronation and bowl turner foot PT-OP-K Range of Motion Start: 03/16/24 14:07 Freq: Status: Active Protocol: Document 03/22/24 09:01 [facility] (Rec: 03/22/24 09:50 [facility] [id number]) Lumbar Spine Range of Motion Lumbar Spine Active Percentage Flexion 50 Extension 75 Rotation Left 50 Rotation Right 75 Lateral Flexion Left 40 Lateral Flexion Right 50 Comments hinge L2, pain spine R SB PT-OP-L Special Tests Start: 03/16/24 14:07 Freq: Status: Active Protocol: Document 03/22/24 09:01 [facility] (Rec: 03/22/24 09:50 [facility] [id number]) Special Tests Lumbar Spine Special Tests march Test Results positive obers Test Results positive B (R>L) Straight Leg Raise Test Results R>L flexibility but both >90 deg Fredy Test Results R hip flexor and RF tightness Slump Test Results neg B, ext sit more tension R PT-OP-M Strength Start: 03/16/24 14:07 Freq: Status: Active Protocol: Document 03/22/24 09:01 [facility] (Rec: 03/22/24 09:50 [facility] [id number]) Hip Strength Hip Manual Muscle Testing Right Flexion (L2) 4- Good- Extension (S1) 4 Good Abduction 4- Good- Adduction 4- Good- External Rotation 5 Normal Internal Rotation 5 Normal Left Flexion (L2) 3+ Fair+ Extension (S1) 4- Good- Abduction 4+ Good+ Adduction 5 Normal External Rotation 5 Normal Internal Rotation 5 Normal Knee Strength Knee Manual Muscle Testing Right Flexion (S2) 4 Good Extension (L3) 5 Normal Left Flexion (S2) 5 Normal Extension (L3) 5 Normal Ankle/Foot Strength Ankle and Foot Manual Muscle Testing Right Dorsiflexion (L4) 5 Normal Plantarflexion (S1) 5 Normal Left Dorsiflexion (L4) 5 Normal Plantarflexion (S1) 5 Normal Comments PF tested seated PT-OP-Q Treatments Start: 03/16/24 14:07 Freq: Status: Active Protocol: Document 04/19/24 11:19 [facility] (Rec: 04/19/24 11:25 [facility] [id number]) Therapeutic Exercises Supine Exercises core Supine Exercise Name DL flex isometric for core w/ DF Side bilateral Reps/Minutes 30 sec Therapeutic Activity Therapeutic Activity sleep position Reps/Minutes 8 min Comments edu for s/l, supine and modified prone propping w/ pillows Manual Therapy Treatment Consent Patient gave verbal consent for manual Yes treatment Soft Tissue Mobilization spine Body Location R parapsinals Mobilization Type Rolling,Strumming Body Position Sidelying Comments gentle glutes Body Location R piriformis Mobilization Type Sustained Pressure Intensity/Depth Moderate Body Position Prone Comments w/hip rot Joint Mobilizations hip Comments R prone hip on axis IR c/r innominate Comments R caudal, IR prone c/r, R add s/l c/r, R ext s/l c/r sacrum Body Position Prone Comments R caudal c/r w/LTR coccyx Body Position Prone Comments R caudal & transverse to L for SB correction w/R hip IR/ER PT-OP-T Assessment and Plan Start: 03/16/24 14:07 Freq: Status: Active Protocol: Document 04/19/24 11:19 [facility] (Rec: 04/19/24 11:25 [facility] [id number]) Physical Therapy Assessment Goals posture Short Term Goal (STG) Pt will score at least 2/5 on VCT to show improved postural alignment STG Duration 05/07/24 Auto Brake Mechanic Goal (LTG) Pt will score at least 4/5 on VCT to show improved postural alignment LTG Duration 06/14/24 strength Short Term Goal (STG) Pt will be indep w/HEP STG Duration 05/04/24 Nursing Home Goal (LTG) Pt will score at least 4+/5 on all BLE MMT and at least 4/5 in all planes LPM to show improved stability. LTG Duration 06/14/24 exercise Short Term Goal (STG) Pt will be able to walk carrying kids w/o pain greater than 1/10 STG Duration 05/04/24 Auto Brake Mechanic Goal (LTG) Pt will be able to return to running w/o LBP or R knee pain LTG Duration 06/14/24 activity Short Term Goal (STG) Pt will be able to sit to play with kids on ground w/o pain greater than 1/10. STG Duration 05/04/24 Nursing Home Goal (LTG) Pt will be able to stand as needed at work w/o pain >1/10. LTG Duration 06/14/24 Assessment Summary Assessment Limited progress at this time d/t pt was out of town for over a week w/a conference and has only been seen for IE and 1 follow up. She is getting some R glute buzzing and had a xray that had some findings at L1, but MRI was denied at this time. She had improved pelvic alignment and imrpoved hip R IR after manual. Cont PT for strength, posture and dec pain. Physical Therapy Plan Frequency and Duration Frequency of Treatment 1-2x/wk Duration of treatment (weeks) 12 Plan of Care Start Date 03/22/24 Plan of Care End Date 06/14/24 Next Visit Focus/Plan Next Note Type Treatment Note Next Visit Plan PNF for LE facilitation, innominate and sacral mobilizations, coccyx assessment and mobilization, STM to back and glutes and ITB and teach self release for glutes and ITB and quad, visceral mobs, work on release to improve alignment of spine in standing check performance w/common core exercises to assess pt form
--- NOTE | 2024-04-25 08:12 | PT.OTN ---
Current Diagnoses Pain in right knee (04/25/24) Pain in thoracic spine (04/25/24) Dorsalgia, unspecified (04/25/24) Weakness (04/25/24) Physical Therapy Treatment Note PT-OP-A Visit Information Start: 03/16/24 14:07 Freq: Status: Active Protocol: Document 04/25/24 07:31 SP (Rec: 04/25/24 08:21 SP [id number]) Out-Patient Physical Therapy Visit Information Visit Information Visit Type Treatment Note Visit Note 60 visits per year Visit Start Time 07:31 Visit Stop Time 08:12 Visit Number 4 Number of MACHINE APPLICATOR CEMENTER Visits 1 Precautions Precautions Lumbar x-ray 03/28/24: Degenerative change. Anterior wedging at L1 is likely chronic in nature given the presence of a Schmorl's node. However, if there is a history of recent trauma, acute compression deformity could be considered in the differential. PT-OP-B Current Condition Start: 03/16/24 14:07 Freq: Status: Active Protocol: Document 03/22/24 09:01 [facility] (Rec: 03/22/24 09:50 [facility] [id number]) Current Condition History of Current Condition History of Current Condition Pt reports when kay stands and charts she always has an annoying feeling in LB. SHe is sitting on the floor w/the kids and its hard to do good positioning. She did an 8 week post core class and feels liek that helped. DOesn' t feel like she has a diastasis. She had bad back pain pain w/BLE pain during . She has an annoying buzzing in L glute since. She has an IUD and hasn't bled. She had her period and had awful bakc pain. She does yoga 2x/week. She sits at a yoga ball to chart. She tries to work on posture. USed to be a runner. During training for a 1/2 marathon R knee pain and lat ITB> She tried dry needling that was helpful. She is no longer breast feeding for past 2 months. She has done some OMT that helped. She has an 8 month old and 3 year old. Back pain never went back to normal after 1 year old. Vaginal births for both w /o complications. No tearing. Denies incontinence. Has bladder prolapse. Bought an pelvic floor call center trainer that hasn't used yet. Hemroids 2nd time. R knee bothers her if tries to run and starts as slight ache then goes to sharp pain. 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 Noticed L low back pain this am. PT-OP-G Mobility & Gait Start: 03/16/24 14:07 Freq: Status: Active Protocol: Document 03/22/24 09:01 [facility] (Rec: 03/22/24 09:50 [facility] [id number]) OP Gait Assessment Comments Gait Comments dec stance time on RLE w/lat shear of pelvis; more notable w/running PT-OP-J Posture/Palpation/Skin Start: 03/16/24 14:07 Freq: Status: Active Protocol: Document 03/22/24 09:01 [facility] (Rec: 03/22/24 09:50 [facility] [id number]) Posture Evaluation [facility] Postural Classification System [facility] Postural Classifications Posterior/Posterior Lumbar Protective Mechanism Left AP 0 Lumbar Protective Mechanism Right AP 0 Lumbar Protective Mechanism Left PA 2 Lumbar Protective Mechanism Right PA 0 Comments Posture Comments R knee hyper ext, R toe out, inc R pronation and return clerk foot PT-OP-K Range of Motion Start: 03/16/24 14:07 Freq: Status: Active Protocol: Document 03/22/24 09:01 [facility] (Rec: 03/22/24 09:50 [facility] [id number]) Lumbar Spine Range of Motion Lumbar Spine Active Percentage Flexion 50 Extension 75 Rotation Left 50 Rotation Right 75 Lateral Flexion Left 40 Lateral Flexion Right 50 Comments hinge L2, pain spine R SB PT-OP-L Special Tests Start: 03/16/24 14:07 Freq: Status: Active Protocol: Document 03/22/24 09:01 [facility] (Rec: 03/22/24 09:50 [facility] [id number]) Special Tests Lumbar Spine Special Tests march Test Results positive obers Test Results positive B (R>L) Straight Leg Raise Test Results R>L flexibility but both >90 deg Fredy Test Results R hip flexor and RF tightness Slump Test Results neg B, ext sit more tension R PT-OP-M Strength Start: 03/16/24 14:07 Freq: Status: Active Protocol: Document 03/22/24 09:01 [facility] (Rec: 03/22/24 09:50 [facility] [id number]) Hip Strength Hip Manual Muscle Testing Right Flexion (L2) 4- Good- Extension (S1) 4 Good Abduction 4- Good- Adduction 4- Good- External Rotation 5 Normal Internal Rotation 5 Normal Left Flexion (L2) 3+ Fair+ Extension (S1) 4- Good- Abduction 4+ Good+ Adduction 5 Normal External Rotation 5 Normal Internal Rotation 5 Normal Knee Strength Knee Manual Muscle Testing Right Flexion (S2) 4 Good Extension (L3) 5 Normal Left Flexion (S2) 5 Normal Extension (L3) 5 Normal Ankle/Foot Strength Ankle and Foot Manual Muscle Testing Right Dorsiflexion (L4) 5 Normal Plantarflexion (S1) 5 Normal Left Dorsiflexion (L4) 5 Normal Plantarflexion (S1) 5 Normal Comments PF tested seated PT-OP-Q Treatments Start: 03/16/24 14:07 Freq: Status: Active Protocol: Document 04/25/24 07:31 SP (Rec: 04/25/24 08:21 SP [id number]) Gym Equipment Therapeutic Ball core Exercise Details pelvic tilts, july, Ball Size/Color 65 cm Reps/Duration 10 reps each Comments added to HEP declined HO Therapeutic Exercises Supine Exercises core Supine Exercise Name DL flex isometric for core w/ DF Side bilateral Reps/Minutes 30 sec Other Exercises self STMs Other Exercise Name ITB, VL, HS- added to HEP with good demo declined HO Side bilateral Equipment Used rolling pin and foam roller Comments reviewed self performance Manual Therapy Treatment Consent Patient gave verbal consent for manual Yes treatment Soft Tissue Mobilization spine Body Location R parapsinals, QL Mobilization Type Rolling,Strumming Body Position LSidelying Comments gentle glutes Body Location R piriformis Mobilization Type Sustained Pressure,Other Intensity/Depth Moderate Body Position Prone & L SL Comments MWM w/hip rot Joint Mobilizations hip Comments R>L prone hip on axis IR cr innominate Comments R caudal cr elev>depression, anterior elevation/ posterior depression Manual Techniques MET Comments R ilium elevation & flare out, MET correction adduction isometric and HS downward press isometric L MET abd isometric and hip ext isometric Good correction pnfree after PT-OP-T Assessment and Plan Start: 03/16/24 14:07 Freq: Status: Active Protocol: Document 04/25/24 07:31 SP (Rec: 04/25/24 08:21 SP [id number]) Physical Therapy Assessment Goals posture Short Term Goal (STG) Pt will score at least 2/5 on VCT to show improved postural alignment STG Duration 05/07/24 Associate Account Manager Goal (LTG) Pt will score at least 4/5 on VCT to show improved postural alignment LTG Duration 06/14/24 strength Short Term Goal (STG) Pt will be indep w/HEP STG Duration 05/04/24 Associate Account Manager Goal (LTG) Pt will score at least 4+/5 on all BLE MMT and at least 4/5 in all planes LPM to show improved stability. LTG Duration 06/14/24 exercise Short Term Goal (STG) Pt will be able to walk carrying kids w/o pain greater than 1/10 STG Duration 05/04/24 Longterm Goal (LTG) Pt will be able to return to running w/o LBP or R knee pain LTG Duration 06/14/24 activity Short Term Goal (STG) Pt will be able to sit to play with kids on ground w/o pain greater than 1/10. STG Duration 05/04/24 Associate Account Manager Goal (LTG) Pt will be able to stand as needed at work w/o pain >1/10. LTG Duration 06/14/24 Assessment Summary Assessment Pt improved pelvic correction post manual and instruction self STMs. PRogressed lumbar AROM and core exercises seated on 65 cm tball and instruction self STMs for decrease muscular tension on pelvis, good response and performance pnfree end tx. Declined HO for carryover home . Physical Therapy Plan Frequency and Duration Frequency of Treatment 1-2x/wk Duration of treatment (weeks) 12 Plan of Care Start Date 03/22/24 Plan of Care End Date 06/14/24 Therapeutic Interventions Therapeutic Interventions Balance Training,Gait Training ,Home Exercise Program,Joint Mobilizations,Manual Therapy, Neuromuscular Re-education, Patient/Caregiver Education, Self-Care/Home Management,Soft Tissue Mobilization,Taping, Therapeutic Activities, Therapeutic Exercises Modalities Cold Pack/Ice Massage,Electric Stimulation,Hot Packs Next Visit Focus/Plan Next Note Type Treatment Note Next Visit Plan REcheck Tball ex, progress as directed. POC: PNF for LE facilitation, innominate and sacral mobilizations, coccyx assessment and mobilization, STM to back and glutes and ITB and teach self release for glutes and ITB and quad, visceral mobs, work on release to improve alignment of spine in standing check performance w/common core exercises to assess pt form
--- NOTE | 2024-04-25 08:12 | PT.OTN ---
Current Diagnoses Pain in right knee (04/25/24) Pain in thoracic spine (04/25/24) Dorsalgia, unspecified (04/25/24) Weakness (04/25/24) Physical Therapy Treatment Note PT-OP-A Visit Information Start: 03/16/24 14:07 Freq: Status: Active Protocol: Document 04/25/24 07:31 SP (Rec: 04/25/24 08:21 SP [id number]) Out-Patient Physical Therapy Visit Information Visit Information Visit Type Treatment Note Visit Note 60 visits per year Visit Start Time 07:31 Visit Stop Time 08:12 Visit Number 4 Number of PHARMACY SCHEDULER Visits 1 Precautions Precautions Lumbar x-ray 03/28/24: Degenerative change. Anterior wedging at L1 is likely chronic in nature given the presence of a Schmorl's node. However, if there is a history of recent trauma, acute compression deformity could be considered in the differential. PT-OP-B Current Condition Start: 03/16/24 14:07 Freq: Status: Active Protocol: Document 03/22/24 09:01 [facility] (Rec: 03/22/24 09:50 [facility] [id number]) Current Condition History of Current Condition History of Current Condition Pt reports when kay stands and charts she always has an annoying feeling in LB. SHe is sitting on the floor w/the kids and its hard to do good positioning. She did an 8 week post core class and feels liek that helped. DOesn' t feel like she has a diastasis. She had bad back pain pain w/BLE pain during . She has an annoying buzzing in L glute since. She has an IUD and hasn't bled. She had her period and had awful bakc pain. She does yoga 2x/week. She sits at a yoga ball to chart. She tries to work on posture. USed to be a runner. During training for a 1/2 marathon R knee pain and lat ITB> She tried dry needling that was helpful. She is no longer breast feeding for past 2 months. She has done some OMT that helped. She has an 8 month old and 3 year old. Back pain never went back to normal after 1 year old. Vaginal births for both w /o complications. No tearing. Denies incontinence. Has bladder prolapse. Bought an pelvic floor link trainer mechanic that hasn't used yet. Hemroids 2nd time. R knee bothers her if tries to run and starts as slight ache then goes to sharp pain. 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 Noticed L low back pain this am. PT-OP-G Mobility & Gait Start: 03/16/24 14:07 Freq: Status: Active Protocol: Document 03/22/24 09:01 [facility] (Rec: 03/22/24 09:50 [facility] [id number]) OP Gait Assessment Comments Gait Comments dec stance time on RLE w/lat shear of pelvis; more notable w/running PT-OP-J Posture/Palpation/Skin Start: 03/16/24 14:07 Freq: Status: Active Protocol: Document 03/22/24 09:01 [facility] (Rec: 03/22/24 09:50 [facility] [id number]) Posture Evaluation Nilesh Postural Classification System Nilesh Postural Classifications Posterior/Posterior Lumbar Protective Mechanism Left AP 0 Lumbar Protective Mechanism Right AP 0 Lumbar Protective Mechanism Left PA 2 Lumbar Protective Mechanism Right PA 0 Comments Posture Comments R knee hyper ext, R toe out, inc R pronation and turntable engineer foot PT-OP-K Range of Motion Start: 03/16/24 14:07 Freq: Status: Active Protocol: Document 03/22/24 09:01 [facility] (Rec: 03/22/24 09:50 [facility] [id number]) Lumbar Spine Range of Motion Lumbar Spine Active Percentage Flexion 50 Extension 75 Rotation Left 50 Rotation Right 75 Lateral Flexion Left 40 Lateral Flexion Right 50 Comments hinge L2, pain spine R SB PT-OP-L Special Tests Start: 03/16/24 14:07 Freq: Status: Active Protocol: Document 03/22/24 09:01 [facility] (Rec: 03/22/24 09:50 [facility] [id number]) Special Tests Lumbar Spine Special Tests march Test Results positive obers Test Results positive B (R>L) Straight Leg Raise Test Results R>L flexibility but both >90 deg Fredy Test Results R hip flexor and RF tightness Slump Test Results neg B, ext sit more tension R PT-OP-M Strength Start: 03/16/24 14:07 Freq: Status: Active Protocol: Document 03/22/24 09:01 [facility] (Rec: 03/22/24 09:50 [facility] [id number]) Hip Strength Hip Manual Muscle Testing Right Flexion (L2) 4- Good- Extension (S1) 4 Good Abduction 4- Good- Adduction 4- Good- External Rotation 5 Normal Internal Rotation 5 Normal Left Flexion (L2) 3+ Fair+ Extension (S1) 4- Good- Abduction 4+ Good+ Adduction 5 Normal External Rotation 5 Normal Internal Rotation 5 Normal Knee Strength Knee Manual Muscle Testing Right Flexion (S2) 4 Good Extension (L3) 5 Normal Left Flexion (S2) 5 Normal Extension (L3) 5 Normal Ankle/Foot Strength Ankle and Foot Manual Muscle Testing Right Dorsiflexion (L4) 5 Normal Plantarflexion (S1) 5 Normal Left Dorsiflexion (L4) 5 Normal Plantarflexion (S1) 5 Normal Comments PF tested seated PT-OP-Q Treatments Start: 03/16/24 14:07 Freq: Status: Active Protocol: Document 04/25/24 07:31 SP (Rec: 04/25/24 08:21 SP [id number]) Gym Equipment Therapeutic Ball core Exercise Details pelvic tilts, july, Ball Size/Color 65 cm Reps/Duration 10 reps each Comments added to HEP declined HO Therapeutic Exercises Supine Exercises core Supine Exercise Name DL flex isometric for core w/ DF Side bilateral Reps/Minutes 30 sec Other Exercises self STMs Other Exercise Name ITB, VL, HS- added to HEP with good demo declined HO Side bilateral Equipment Used rolling pin and foam roller Comments reviewed self performance Manual Therapy Treatment Consent Patient gave verbal consent for manual Yes treatment Soft Tissue Mobilization spine Body Location R parapsinals, QL Mobilization Type Rolling,Strumming Body Position LSidelying Comments gentle glutes Body Location R piriformis Mobilization Type Sustained Pressure,Other Intensity/Depth Moderate Body Position Prone & L SL Comments MWM w/hip rot Joint Mobilizations hip Comments R>L prone hip on axis IR cr innominate Comments R caudal cr elev>depression Manual Techniques MET Comments R ilium elevation & flare out, MET correction adduction isometric and HS downward press isometric L MET abd isometric and hip ext isometric Good correction pnfree after PT-OP-T Assessment and Plan Start: 03/16/24 14:07 Freq: Status: Active Protocol: Document 04/25/24 07:31 SP (Rec: 04/25/24 08:21 SP [id number]) Physical Therapy Assessment Goals posture Short Term Goal (STG) Pt will score at least 2/5 on VCT to show improved postural alignment STG Duration 05/07/24 Inventory Planner Goal (LTG) Pt will score at least 4/5 on VCT to show improved postural alignment LTG Duration 06/14/24 strength Short Term Goal (STG) Pt will be indep w/HEP STG Duration 05/04/24 Inventory Planner Goal (LTG) Pt will score at least 4+/5 on all BLE MMT and at least 4/5 in all planes LPM to show improved stability. LTG Duration 06/14/24 exercise Short Term Goal (STG) Pt will be able to walk carrying kids w/o pain greater than 1/10 STG Duration 05/04/24 Intermediate Goal (LTG) Pt will be able to return to running w/o LBP or R knee pain LTG Duration 06/14/24 activity Short Term Goal (STG) Pt will be able to sit to play with kids on ground w/o pain greater than 1/10. STG Duration 05/04/24 Intermediate Goal (LTG) Pt will be able to stand as needed at work w/o pain >1/10. LTG Duration 06/14/24 Assessment Summary Assessment Pt improved pelvic correction post manual and instruction self STMs. PRogressed lumbar AROM and core exercises seated on 65 cm tball and instruction self STMs for decrease muscular tension on pelvis, good response and performance pnfree end tx. Declined HO for carryover home . Physical Therapy Plan Frequency and Duration Frequency of Treatment 1-2x/wk Duration of treatment (weeks) 12 Plan of Care Start Date 03/22/24 Plan of Care End Date 06/14/24 Therapeutic Interventions Therapeutic Interventions Balance Training,Gait Training ,Home Exercise Program,Joint Mobilizations,Manual Therapy, Neuromuscular Re-education, Patient/Caregiver Education, Self-Care/Home Management,Soft Tissue Mobilization,Taping, Therapeutic Activities, Therapeutic Exercises Modalities Cold Pack/Ice Massage,Electric Stimulation,Hot Packs Next Visit Focus/Plan Next Note Type Treatment Note Next Visit Plan REcheck Tball ex, progress as directed. POC: PNF for LE facilitation, innominate and sacral mobilizations, coccyx assessment and mobilization, STM to back and glutes and ITB and teach self release for glutes and ITB and quad, visceral mobs, work on release to improve alignment of spine in standing check performance w/common core exercises to assess pt form
--- NOTE | 2024-05-01 08:09 | PT.OTN ---
Current Diagnoses Pain in right knee (05/01/24) Pain in thoracic spine (05/01/24) Dorsalgia, unspecified (05/01/24) Weakness (05/01/24) Physical Therapy Treatment Note PT-OP-A Visit Information Start: 03/16/24 14:07 Freq: Status: Active Protocol: Document 05/01/24 07:30 SP (Rec: 05/01/24 08:15 SP [id number]) Out-Patient Physical Therapy Visit Information Visit Information Visit Type Treatment Note Visit Note 60 visits per year Visit Start Time 07:31 Visit Stop Time 08:09 Visit Number 5 Number of MARKETING DEVELOPMENT MANAGER Visits 2 Precautions Precautions Lumbar x-ray 03/28/24: Degenerative change. Anterior wedging at L1 is likely chronic in nature given the presence of a Schmorl's node. However, if there is a history of recent trauma, acute compression deformity could be considered in the differential. PT-OP-B Current Condition Start: 03/16/24 14:07 Freq: Status: Active Protocol: Document 03/22/24 09:01 [facility] (Rec: 03/22/24 09:50 [facility] [id number]) Current Condition History of Current Condition History of Current Condition Pt reports when kay stands and charts she always has an annoying feeling in LB. SHe is sitting on the floor w/the kids and its hard to do good positioning. She did an 8 week post core class and feels liek that helped. DOesn' t feel like she has a diastasis. She had bad back pain pain w/BLE pain during . She has an annoying buzzing in L glute since. She has an IUD and hasn't bled. She had her period and had awful bakc pain. She does yoga 2x/week. She sits at a yoga ball to chart. She tries to work on posture. USed to be a runner. During training for a 1/2 marathon R knee pain and lat ITB> She tried dry needling that was helpful. She is no longer breast feeding for past 2 months. She has done some OMT that helped. She has an 8 month old and 3 year old. Back pain never went back to normal after 1 year old. Vaginal births for both w /o complications. No tearing. Denies incontinence. Has bladder prolapse. Bought an pelvic floor care trainer that hasn't used yet. Hemroids 2nd time. R knee bothers her if tries to run and starts as slight ache then goes to sharp pain. Treatment Goals Patient/Caregiver Goals Running, standing at work, sitting playing w/kids PT-OP-C Subjective Start: 03/16/24 14:07 Freq: Status: Active Protocol: Document 05/01/24 07:30 SP (Rec: 05/01/24 08:15 SP [id number]) OP-PT Subjective Patient Comments Patient Comments Pt reports woke up this am and sore so performed Yoga. Has incorporated reformer Palates class yesterday with focus quad and glut. She states overall back littel better and incorporating HEP, ordered rolling pin. She reports trying aware posture sitting with kids about 10 min before has to get up. Can sleep without pain lately. PT-OP-G Mobility & Gait Start: 03/16/24 14:07 Freq: Status: Active Protocol: Document 03/22/24 09:01 [facility] (Rec: 03/22/24 09:50 [facility] [id number]) OP Gait Assessment Comments Gait Comments dec stance time on RLE w/lat shear of pelvis; more notable w/running PT-OP-J Posture/Palpation/Skin Start: 03/16/24 14:07 Freq: Status: Active Protocol: Document 03/22/24 09:01 [facility] (Rec: 03/22/24 09:50 [facility] [id number]) Posture Evaluation [facility] Postural Classification System Nilesh Postural Classifications Posterior/Posterior Lumbar Protective Mechanism Left AP 0 Lumbar Protective Mechanism Right AP 0 Lumbar Protective Mechanism Left PA 2 Lumbar Protective Mechanism Right PA 0 Comments Posture Comments R knee hyper ext, R toe out, inc R pronation and metal turner foot PT-OP-K Range of Motion Start: 03/16/24 14:07 Freq: Status: Active Protocol: Document 03/22/24 09:01 [facility] (Rec: 03/22/24 09:50 [facility] [id number]) Lumbar Spine Range of Motion Lumbar Spine Active Percentage Flexion 50 Extension 75 Rotation Left 50 Rotation Right 75 Lateral Flexion Left 40 Lateral Flexion Right 50 Comments hinge L2, pain spine R SB PT-OP-L Special Tests Start: 03/16/24 14:07 Freq: Status: Active Protocol: Document 03/22/24 09:01 [facility] (Rec: 03/22/24 09:50 [facility] [id number]) Special Tests Lumbar Spine Special Tests july Test Results positive obers Test Results positive B (R>L) Straight Leg Raise Test Results R>L flexibility but both >90 deg Fredy Test Results R hip flexor and RF tightness Slump Test Results neg B, ext sit more tension R PT-OP-M Strength Start: 03/16/24 14:07 Freq: Status: Active Protocol: Document 03/22/24 09:01 [facility] (Rec: 03/22/24 09:50 [facility] [id number]) Hip Strength Hip Manual Muscle Testing Right Flexion (L2) 4- Good- Extension (S1) 4 Good Abduction 4- Good- Adduction 4- Good- External Rotation 5 Normal Internal Rotation 5 Normal Left Flexion (L2) 3+ Fair+ Extension (S1) 4- Good- Abduction 4+ Good+ Adduction 5 Normal External Rotation 5 Normal Internal Rotation 5 Normal Knee Strength Knee Manual Muscle Testing Right Flexion (S2) 4 Good Extension (L3) 5 Normal Left Flexion (S2) 5 Normal Extension (L3) 5 Normal Ankle/Foot Strength Ankle and Foot Manual Muscle Testing Right Dorsiflexion (L4) 5 Normal Plantarflexion (S1) 5 Normal Left Dorsiflexion (L4) 5 Normal Plantarflexion (S1) 5 Normal Comments PF tested seated PT-OP-Q Treatments Start: 03/16/24 14:07 Freq: Status: Active Protocol: Document 05/01/24 07:30 SP (Rec: 05/01/24 08:15 SP [id number]) Gym Equipment Therapeutic Ball core Exercise Details pelvic tilts, LAQ, july / then /c TB #2 pull down Ball Size/Color 65 cm Reps/Duration 10 reps each Therapeutic Exercises Supine Exercises core Supine Exercise Name DL flex isometric for core w/ DF Side bilateral Reps/Minutes 30 sec Prone Exercises pigeon Prone Exercise Name reviewed self yoga doing Side bilateral Reps/Minutes 30 SH Comments good form/response Standing Exercises resisted stepping Standing Exercise Name fwd, bwd, lateral- added to HEP, declined HO Side bilateral Resistance TB #2 at ankles Reps/Minutes 15 ft Comments cue neutral pelvis Other Exercises bird dog Other Exercise Name reviewed her self past activity: added to HEP Side bilateral Reps/Minutes x10 Comments cues R LB lift level, lower pelvis self STMs Other Exercise Name Quad, HS, Calf, ITB, Glut, ES Side bilateral Equipment Used rolling pin, ball wall Comments reviewed self performance and response Manual Therapy Treatment Consent Patient gave verbal consent for manual Yes treatment Soft Tissue Mobilization spine Body Location R>L parapsinals, QL Mobilization Type Rolling,Strumming,Sustained Pressure,Other Body Position LB Sidelying Comments gentle STMs and MWM hip elevation/depression glutes Body Location R>L piriformis, glut med Mobilization Type Sustained Pressure,Other Intensity/Depth Moderate Body Position Prone & L SL Comments MWM w/hip rot PT-OP-T Assessment and Plan Start: 03/16/24 14:07 Freq: Status: Active Protocol: Document 05/01/24 07:30 SP (Rec: 05/01/24 08:15 SP [id number]) Physical Therapy Assessment Goals posture Short Term Goal (STG) Pt will score at least 2/5 on VCT to show improved postural alignment STG Duration 05/07/24 Employment Counselor Goal (LTG) Pt will score at least 4/5 on VCT to show improved postural alignment LTG Duration 06/14/24 strength Short Term Goal (STG) Pt will be indep w/HEP STG Duration 05/04/24 Employment Counselor Goal (LTG) Pt will score at least 4+/5 on all BLE MMT and at least 4/5 in all planes LPM to show improved stability. LTG Duration 06/14/24 exercise Short Term Goal (STG) Pt will be able to walk carrying kids w/o pain greater than 1/10 STG Duration 05/04/24 Group Home Goal (LTG) Pt will be able to return to running w/o LBP or R knee pain LTG Duration 06/14/24 activity Short Term Goal (STG) Pt will be able to sit to play with kids on ground w/o pain greater than 1/10. STG Duration 05/04/24 Employment Counselor Goal (LTG) Pt will be able to stand as needed at work w/o pain >1/10. LTG Duration 06/14/24 Assessment Summary Assessment Pt pelvic alignment improvement arrival, little tightness R>L QL, piriformis and glut med softening post manual. Continued incorporate and progress core resisted pulldown and core march tball with occasional cuing for pelvic alignment no pain. Initiated resisted stepping for hip abd and core strengthening with no pain, muscle soreness. Good response and performance of self STMs end tx for muscle tiring/ soreness recovery. She states incorporates at work day. Physical Therapy Plan Frequency and Duration Frequency of Treatment 1-2x/wk Duration of treatment (weeks) 12 Plan of Care Start Date 03/22/24 Plan of Care End Date 06/14/24 Therapeutic Interventions Therapeutic Interventions Balance Training,Gait Training ,Home Exercise Program,Joint Mobilizations,Manual Therapy, Neuromuscular Re-education, Patient/Caregiver Education, Self-Care/Home Management,Soft Tissue Mobilization,Taping, Therapeutic Activities, Therapeutic Exercises Modalities Cold Pack/Ice Massage,Electric Stimulation,Hot Packs Next Visit Focus/Plan Next Note Type Treatment Note Next Visit Plan REcheck Tball ex added TB pulldown/core march and resisted band walk. POC: PNF for LE facilitation, innominate and sacral mobilizations, coccyx assessment and mobilization, STM to back and glutes and ITB and teach self release for glutes and ITB and quad, visceral mobs, work on release to improve alignment of spine in standing check performance w/common core exercises to assess pt form
--- NOTE | 2024-05-10 09:47 | PT.OTN ---
Current Diagnoses Pain in right knee (05/10/24) Pain in thoracic spine (05/10/24) Dorsalgia, unspecified (05/10/24) Weakness (05/10/24) Physical Therapy Treatment Note PT-OP-A Visit Information Start: 03/16/24 14:07 Freq: Status: Active Protocol: Document 05/10/24 09:02 MB (Rec: 05/10/24 09:06 MB [id number]) Out-Patient Physical Therapy Visit Information Visit Information Visit Type Treatment Note Visit Note 60 visits per year Visit Start Time 09:02 Visit Stop Time 09:42 Visit Number 6 Number of STEAM TURBINE OPERATOR Visits 0 Precautions Precautions Lumbar x-ray 03/28/24: Degenerative change. Anterior wedging at L1 is likely chronic in nature given the presence of a Schmorl's node. However, if there is a history of recent trauma, acute compression deformity could be considered in the differential. PT-OP-B Current Condition Start: 03/16/24 14:07 Freq: Status: Active Protocol: Document 03/22/24 09:01 [facility] (Rec: 03/22/24 09:50 [facility] [id number]) Current Condition History of Current Condition History of Current Condition Pt reports when kay stands and charts she always has an annoying feeling in LB. SHe is sitting on the floor w/the kids and its hard to do good positioning. She did an 8 week post core class and feels liek that helped. DOesn' t feel like she has a diastasis. She had bad back pain pain w/BLE pain during . She has an annoying buzzing in L glute since. She has an IUD and hasn't bled. She had her period and had awful bakc pain. She does yoga 2x/week. She sits at a yoga ball to chart. She tries to work on posture. USed to be a runner. During training for a 1/2 marathon R knee pain and lat ITB> She tried dry needling that was helpful. She is no longer breast feeding for past 2 months. She has done some OMT that helped. She has an 8 month old and 3 year old. Back pain never went back to normal after 1 year old. Vaginal births for both w /o complications. No tearing. Denies incontinence. Has bladder prolapse. Bought an pelvic floor hydraulic strainer operator that hasn't used yet. Hemroids 2nd time. R knee bothers her if tries to run and starts as slight ache then goes to sharp pain. Treatment Goals Patient/Caregiver Goals Running, standing at work, sitting playing w/kids PT-OP-C Subjective Start: 03/16/24 14:07 Freq: Status: Active Protocol: Document 05/10/24 09:02 MB (Rec: 05/10/24 09:08 MB [id number]) OP-PT Subjective Patient Comments Patient Comments Pt has not yet been running yet and is more aware of her pelvic alignment and her sleeping position. Lumbar MRI 04/19 was negative. PT-OP-G Mobility & Gait Start: 03/16/24 14:07 Freq: Status: Active Protocol: Document 03/22/24 09:01 [facility] (Rec: 03/22/24 09:50 [facility] [id number]) OP Gait Assessment Comments Gait Comments dec stance time on RLE w/lat shear of pelvis; more notable w/running PT-OP-J Posture/Palpation/Skin Start: 03/16/24 14:07 Freq: Status: Active Protocol: Document 03/22/24 09:01 [facility] (Rec: 03/22/24 09:50 [facility] [id number]) Posture Evaluation Nilesh Postural Classification System Nilesh Postural Classifications Posterior/Posterior Lumbar Protective Mechanism Left AP 0 Lumbar Protective Mechanism Right AP 0 Lumbar Protective Mechanism Left PA 2 Lumbar Protective Mechanism Right PA 0 Comments Posture Comments R knee hyper ext, R toe out, inc R pronation and turn sewer foot PT-OP-K Range of Motion Start: 03/16/24 14:07 Freq: Status: Active Protocol: Document 03/22/24 09:01 [facility] (Rec: 03/22/24 09:50 [facility] [id number]) Lumbar Spine Range of Motion Lumbar Spine Active Percentage Flexion 50 Extension 75 Rotation Left 50 Rotation Right 75 Lateral Flexion Left 40 Lateral Flexion Right 50 Comments hinge L2, pain spine R SB PT-OP-L Special Tests Start: 03/16/24 14:07 Freq: Status: Active Protocol: Document 03/22/24 09:01 [facility] (Rec: 03/22/24 09:50 [facility] [id number]) Special Tests Lumbar Spine Special Tests march Test Results positive obers Test Results positive B (R>L) Straight Leg Raise Test Results R>L flexibility but both >90 deg Fredy Test Results R hip flexor and RF tightness Slump Test Results neg B, ext sit more tension R PT-OP-M Strength Start: 03/16/24 14:07 Freq: Status: Active Protocol: Document 03/22/24 09:01 [facility] (Rec: 03/22/24 09:50 [facility] [id number]) Hip Strength Hip Manual Muscle Testing Right Flexion (L2) 4- Good- Extension (S1) 4 Good Abduction 4- Good- Adduction 4- Good- External Rotation 5 Normal Internal Rotation 5 Normal Left Flexion (L2) 3+ Fair+ Extension (S1) 4- Good- Abduction 4+ Good+ Adduction 5 Normal External Rotation 5 Normal Internal Rotation 5 Normal Knee Strength Knee Manual Muscle Testing Right Flexion (S2) 4 Good Extension (L3) 5 Normal Left Flexion (S2) 5 Normal Extension (L3) 5 Normal Ankle/Foot Strength Ankle and Foot Manual Muscle Testing Right Dorsiflexion (L4) 5 Normal Plantarflexion (S1) 5 Normal Left Dorsiflexion (L4) 5 Normal Plantarflexion (S1) 5 Normal Comments PF tested seated PT-OP-Q Treatments Start: 03/16/24 14:07 Freq: Status: Active Protocol: Document 05/10/24 09:02 MB (Rec: 05/10/24 09:41 MB [id number]) Manual Therapy Treatment Consent Patient gave verbal consent for manual Yes treatment Other Other Manual Treatments Pt supine: STM B vastus lateralis and hamstrings, TFL, hip rotators, TrP left vastus lateralis and TFL; B rib recoil for paraspinals, QL, rib mobility, TrP left QL; TrP right QL and iliosposas, glute medius and STM these muscles groups as well. PT-OP-T Assessment and Plan Start: 03/16/24 14:07 Freq: Status: Active Protocol: Document 05/10/24 09:02 MB (Rec: 05/10/24 09:06 MB [id number]) Physical Therapy Assessment Goals posture Short Term Goal (STG) Pt will score at least 2/5 on VCT to show improved postural alignment STG Duration 05/07/24 Wellness Assistant Goal (LTG) Pt will score at least 4/5 on VCT to show improved postural alignment LTG Duration 06/14/24 strength Short Term Goal (STG) Pt will be indep w/HEP STG Duration 05/04/24 Wellness Assistant Goal (LTG) Pt will score at least 4+/5 on all BLE MMT and at least 4/5 in all planes LPM to show improved stability. LTG Duration 06/14/24 exercise Short Term Goal (STG) Pt will be able to walk carrying kids w/o pain greater than 1/10 STG Duration 05/04/24 Mcc Goal (LTG) Pt will be able to return to running w/o LBP or R knee pain LTG Duration 06/14/24 activity Short Term Goal (STG) Pt will be able to sit to play with kids on ground w/o pain greater than 1/10. STG Duration 05/04/24 Wellness Assistant Goal (LTG) Pt will be able to stand as needed at work w/o pain >1/10. LTG Duration 06/14/24 Assessment Summary Assessment Pt tolerates treatment well. Con't per primary PT plan and consider breathing training. Physical Therapy Plan Frequency and Duration Frequency of Treatment 1-2x/wk Duration of treatment (weeks) 12 Plan of Care Start Date 03/22/24 Plan of Care End Date 06/14/24 Therapeutic Interventions Therapeutic Interventions Balance Training,Gait Training ,Home Exercise Program,Joint Mobilizations,Manual Therapy, Neuromuscular Re-education, Patient/Caregiver Education, Self-Care/Home Management,Soft Tissue Mobilization,Taping, Therapeutic Activities, Therapeutic Exercises Modalities Cold Pack/Ice Massage,Electric Stimulation,Hot Packs Next Visit Focus/Plan Next Note Type Treatment Note Next Visit Plan Similar: REcheck Tball ex added TB pulldown/core march and resisted band walk. POC: PNF for LE facilitation, innominate and sacral mobilizations, coccyx assessment and mobilization, STM to back and glutes and ITB and teach self release for glutes and ITB and quad, visceral mobs, work on release to improve alignment of spine in standing check performance w/common core exercises to assess pt form
--- NOTE | 2024-05-25 08:19 | PT.OTN ---
Current Diagnoses Pain in right knee (05/25/24) Pain in thoracic spine (05/25/24) Dorsalgia, unspecified (05/25/24) Weakness (05/25/24) Physical Therapy Treatment Note PT-OP-A Visit Information Start: 03/16/24 14:07 Freq: Status: Active Protocol: Document 05/25/24 07:33 [facility] (Rec: 05/25/24 08:18 [facility] [id number]) Out-Patient Physical Therapy Visit Information Visit Information Visit Type Treatment Note Visit Note 60 visits per year Visit Start Time 07:33 Visit Stop Time 08:03 Visit Number 7 Number of SUPERVISOR WATER TREATMENT PLANT Visits 0 PT-OP-B Current Condition Start: 03/16/24 14:07 Freq: Status: Active Protocol: Document 03/22/24 09:01 [facility] (Rec: 03/22/24 09:50 [facility] [id number]) Current Condition History of Current Condition History of Current Condition Pt reports when kay stands and charts she always has an annoying feeling in LB. SHe is sitting on the floor w/the [place] and its hard to do good positioning. She did an 8 week post core class and feels liek that helped. DOesn' t feel like she has a diastasis. She had bad back pain pain w/BLE pain during . She has an annoying buzzing in L glute since. She has an IUD and hasn't bled. She had her period and had awful bakc pain. She does yoga 2x/week. She sits at a yoga ball to chart. She tries to work on posture. USed to be a runner. During training for a 1/2 marathon R knee pain and lat ITB> She tried dry needling that was helpful. She is no longer breast feeding for past 2 months. She has done some OMT that helped. She has an 8 month old and 3 year old. Back pain never went back to normal after 1 year old. Vaginal births for both w /o complications. No tearing. Denies incontinence. Has bladder prolapse. Bought an pelvic floor ultimate hoops trainer that hasn't used yet. Hemroids 2nd time. R knee bothers her if tries to run and starts as slight ache then goes to sharp pain. Treatment Goals Patient/Caregiver Goals Running, standing at work, sitting playing w/kids PT-OP-C Subjective Start: 03/16/24 14:07 Freq: Status: Active Protocol: Document 05/25/24 07:33 [facility] (Rec: 05/25/24 08:18 [facility] [id number]) OP-PT Subjective Patient Comments Patient Comments pt reports she has been doing pilates. Overall pain is better and can do more. Does have bad days like wednesday but no specific reason for this. Patient Reported Progress Improving PT-OP-G Mobility & Gait Start: 03/16/24 14:07 Freq: Status: Active Protocol: Document 03/22/24 09:01 [facility] (Rec: 03/22/24 09:50 [facility] [id number]) OP Gait Assessment Comments Gait Comments dec stance time on RLE w/lat shear of pelvis; more notable w/running PT-OP-J Posture/Palpation/Skin Start: 03/16/24 14:07 Freq: Status: Active Protocol: Document 05/25/24 07:33 [facility] (Rec: 05/25/24 08:18 [facility] [id number]) Posture Evaluation Nilesh Postural Classification System Nilesh Postural Classifications Posterior/Posterior Vertical Compression Test 2 Elbow Flexion Test 3 Lumbar Protective Mechanism Left AP 1 Lumbar Protective Mechanism Right AP 3 Lumbar Protective Mechanism Left PA 3 Lumbar Protective Mechanism Right PA 3 PT-OP-K Range of Motion Start: 03/16/24 14:07 Freq: Status: Active Protocol: Document 03/22/24 09:01 [facility] (Rec: 03/22/24 09:50 [facility] [id number]) Lumbar Spine Range of Motion Lumbar Spine Active Percentage Flexion 50 Extension 75 Rotation Left 50 Rotation Right 75 Lateral Flexion Left 40 Lateral Flexion Right 50 Comments hinge L2, pain spine R SB PT-OP-L Special Tests Start: 03/16/24 14:07 Freq: Status: Active Protocol: Document 03/22/24 09:01 [facility] (Rec: 03/22/24 09:50 [facility] [id number]) Special Tests Lumbar Spine Special Tests march Test Results positive obers Test Results positive B (R>L) Straight Leg Raise Test Results R>L flexibility but both >90 deg Fredy Test Results R hip flexor and RF tightness Slump Test Results neg B, ext sit more tension R PT-OP-M Strength Start: 03/16/24 14:07 Freq: Status: Active Protocol: Document 05/25/24 07:33 [facility] (Rec: 05/25/24 08:18 [facility] [id number]) Hip Strength Hip Manual Muscle Testing Right Flexion (L2) 4 Good Extension (S1) 5 Normal Abduction 5 Normal Adduction 5 Normal External Rotation 5 Normal Internal Rotation 5 Normal Left Flexion (L2) 4 Good Extension (S1) 5 Normal Abduction 5 Normal Adduction 5 Normal External Rotation 5 Normal Internal Rotation 5 Normal Knee Strength Knee Manual Muscle Testing Right Flexion (S2) 4 Good Extension (L3) 5 Normal Left Flexion (S2) 5 Normal Extension (L3) 5 Normal Ankle/Foot Strength Ankle and Foot Manual Muscle Testing Right Dorsiflexion (L4) 5 Normal Plantarflexion (S1) 5 Normal Left Dorsiflexion (L4) 5 Normal Plantarflexion (S1) 5 Normal Comments PF tested seated PT-OP-Q Treatments Start: 03/16/24 14:07 Freq: Status: Active Protocol: Document 05/25/24 07:33 [facility] (Rec: 05/25/24 08:18 [facility] [id number]) Therapeutic Exercises Standing Exercises SL squat Standing Exercise Name 1. in mirror 2. lat step up/ downs Side bilateral Equipment Used 2. on 6 in step Reps/Minutes 1. 3 ea 2. 10 ea Comments max cues knee position RDL Standing Exercise Name 1. DL 2. SL Side bilateral Reps/Minutes 1. 5 2. 10 Comments cues neutral pelvis w/SL Other Exercises isometrics Other Exercise Name BLE MMT , LPM, VCT, EFT Therapeutic Activity Therapeutic Activity posture Comments working on stacking ribcage over pelvis and set of scap and neck position Manual Therapy Treatment Consent Patient gave verbal consent for manual Yes treatment Soft Tissue Mobilization hip flexor Body Location R iliacus Mobilization Type Sustained Pressure Joint Mobilizations innominate Comments R ext c/r PT-OP-T Assessment and Plan Start: 03/16/24 14:07 Freq: Status: Active Protocol: Document 05/25/24 07:33 [facility] (Rec: 05/25/24 08:18 [facility] [id number]) Physical Therapy Assessment Goals posture Short Term Goal (STG) Pt will score at least 2/5 on VCT to show improved postural alignment STG Duration achieved 05/25 Senior Living Goal (LTG) Pt will score at least 4/5 on VCT to show improved postural alignment 05/25-2/5 LTG Duration 07/20 strength Short Term Goal (STG) Pt will be indep w/HEP STG Duration achieved-advancing as able Senior Living Goal (LTG) Pt will score at least 4+/5 on all BLE MMT and at least 4/5 in all planes LPM to show improved stability. 05/25-improved significantly LTG Duration 07/20 exercise Short Term Goal (STG) Pt will be able to walk carrying kids w/o pain greater than 1/10 STG Duration achieved 05/25 Social Science Instructor Goal (LTG) Pt will be able to return to running w/o LBP or R knee pain 05/25-ran part of the way up a mountain and felt ok LTG Duration 06/14/24 activity Short Term Goal (STG) Pt will be able to sit to play with kids on ground w/o pain greater than 1/10. 05/25-better, long period of time still does >20 min 08/10 STG Duration 05/04/24 Social Science Instructor Goal (LTG) Pt will be able to stand as needed at work w/o pain >/10. 05/25-better, occ days like wednesday it hurts LTG Duration 06/14/24 Assessment Summary Assessment Pt is demonstrating much improved strength, posture and core stability since starting PT. She is inc her ability to work out and has returned to [employer] and has run 1x f or a small distance and hiked without issue, but does still have some bad days. Overall, pt noting improvement is ability to participate in her typical activties. Cont PT to work on stability and return to running and full activity w /o pain. Physical Therapy Plan Frequency and Duration Frequency of Treatment 1-2x/wk Duration of treatment (weeks) 8 Plan of Care Start Date 05/25/24 Plan of Care End Date 07/20/24 Therapeutic Interventions Therapeutic Interventions Balance Training,Gait Training ,Home Exercise Program,Joint Mobilizations,Manual Therapy, Neuromuscular Re-education, Patient/Caregiver Education, Self-Care/Home Management,Soft Tissue Mobilization,Taping, Therapeutic Activities, Therapeutic Exercises Modalities Cold Pack/Ice Massage,Electric Stimulation,Hot Packs Next Visit Focus/Plan Next Note Type Treatment Note Next Visit Plan work on SL activities for return to running, PNF for LE facilitation, innominate and sacral mobilizations, coccyx assessment and mobilization, STM to back and glutes and ITB and teach self release for glutes and ITB and quad, visceral mobs, work on release to improve alignment of spine in standing
--- NOTE | 2024-05-25 08:19 | PT.OPPOC ---
Physical, Occupational & Speech Therapy At [facility] Current Diagnoses Pain in right knee (05/25/24) Pain in thoracic spine (05/25/24) Dorsalgia, unspecified (05/25/24) Weakness (05/25/24) Visit Care Team Role Provider Type Era Nuno MD Attending Provider Physician Family Provider Primary Care Provider Referring Provider Specialty: Family Practice DEVICE SALES CONSULTANT Address: [address] [place], [place] [address], [address] Fax: Email: [email or web address] Plan Of Care PT-OP-B Current Condition Start: 03/16/24 14:07 Freq: Status: Active Protocol: Document 03/22/24 09:01 [facility] (Rec: 03/22/24 09:50 [facility] [id number]) Current Condition History of Current Condition History of Current Condition Pt reports when kay stands and charts she always has an annoying feeling in LB. SHe is sitting on the floor w/the kids and its hard to do good positioning. She did an 8 week post core class and feels liek that helped. DOesn' t feel like she has a diastasis. She had bad back pain pain w/BLE pain during . She has an annoying buzzing in L glute since. She has an IUD and hasn't bled. She had her period and had awful bakc pain. She does yoga 2x/week. She sits at a yoga ball to chart. She tries to work on posture. USed to be a runner. During training for a 1/2 marathon R knee pain and lat ITB> She tried dry needling that was helpful. She is no longer breast feeding for past 2 months. She has done some OMT that helped. She has an 8 month old and 3 year old. Back pain never went back to normal after 1 year old. Vaginal births for both w /o complications. No tearing. Denies incontinence. Has bladder prolapse. Bought an pelvic floor personal trainer that hasn't used yet. Hemroids 2nd time. R knee bothers her if tries to run and starts as slight ache then goes to sharp pain. Treatment Goals Patient/Caregiver Goals Running, standing at work, sitting playing w/kids PT-OP-T Assessment and Plan Start: 03/16/24 14:07 Freq: Status: Active Protocol: Document 05/25/24 07:33 [facility] (Rec: 05/25/24 08:18 [facility] [id number]) Physical Therapy Assessment Goals posture Short Term Goal (STG) Pt will score at least 2/5 on VCT to show improved postural alignment STG Duration achieved 05/25 Fdc Goal (LTG) Pt will score at least 4/5 on VCT to show improved postural alignment 05/25-06/07 LTG Duration 07/20 strength Short Term Goal (STG) Pt will be indep w/HEP STG Duration achieved-advancing as able Custom Seamstress Goal (LTG) Pt will score at least 4+/5 on all BLE MMT and at least 4/5 in all planes LPM to show improved stability. 05/25-improved significantly LTG Duration 07/20 exercise Short Term Goal (STG) Pt will be able to walk carrying kids w/o pain greater than 1/10 STG Duration achieved 05/25 Fdc Goal (LTG) Pt will be able to return to running w/o LBP or R knee pain 05/25-ran part of the way up a mountain and felt ok LTG Duration 06/14/24 activity Short Term Goal (STG) Pt will be able to sit to play with kids on ground w/o pain greater than 1/10. 05/25-better, long period of time still does >20 min /10 STG Duration 05/04/24 Fdc Goal (LTG) Pt will be able to stand as needed at work w/o pain >1/10. 05/25-better, occ days like wednesday it hurts LTG Duration 06/14/24 Assessment Summary Assessment Pt is demonstrating much improved strength, posture and core stability since starting PT. She is inc her ability to work out and has returned to pilates and has run 1x f or a small distance and hiked without issue, but does still have some bad days. Overall, pt noting improvement is ability to participate in her typical activties. Cont PT to work on stability and return to running and full activity w /o pain. Physical Therapy Plan Frequency and Duration Frequency of Treatment 1-2x/wk Duration of treatment (weeks) 8 Plan of Care Start Date 05/25/24 Plan of Care End Date 07/20/24 Therapeutic Interventions Therapeutic Interventions Balance Training,Gait Training ,Home Exercise Program,Joint Mobilizations,Manual Therapy, Neuromuscular Re-education, Patient/Caregiver Education, Self-Care/Home Management,Soft Tissue Mobilization,Taping, Therapeutic Activities, Therapeutic Exercises Modalities Cold Pack/Ice Massage,Electric Stimulation,Hot Packs Next Visit Focus/Plan Next Note Type Treatment Note Next Visit Plan work on SL activities for return to running, PNF for LE facilitation, innominate and sacral mobilizations, coccyx assessment and mobilization, STM to back and glutes and ITB and teach self release for glutes and ITB and quad, visceral mobs, work on release to improve alignment of spine in standing Plan of Care Dates Plan of Care Start Date 05/25/24 Plan of Care End Date 07/20/24 Electronically Signed by: Kerrie Kelley, PT 05/25/24 0819 If you are in agreement with this Plan of Care, please return a signed and dated copy. I have reviewed this Plan of Care and certify that the skilled therapy services above are required to meet the patient?s needs. Physician Signature Date Printed Name and Credentials Clinical Instructor Signature Printed Name and Credentials
--- NOTE | 2024-05-31 10:25 | PT.OTN ---
Current Diagnoses Pain in right knee (05/31/24) Pain in thoracic spine (05/31/24) Dorsalgia, unspecified (05/31/24) Weakness (05/31/24) Physical Therapy Treatment Note PT-OP-A Visit Information Start: 03/16/24 14:07 Freq: Status: Active Protocol: Document 05/31/24 09:46 MB (Rec: 05/31/24 10:25 MB [id number]) Out-Patient Physical Therapy Visit Information Visit Information Visit Type Treatment Note Visit Note 60 visits per year Visit Start Time 09:46 Visit Stop Time 10:24 Visit Number 8 Number of CUTTING AND BONING SUPERVISOR Visits 0 Precautions Precautions Lumbar x-ray 03/28/24: Degenerative change. Anterior wedging at L1 is likely chronic in nature given the presence of a Schmorl's node. However, if there is a history of recent trauma, acute compression deformity could be considered in the differential. PT-OP-B Current Condition Start: 03/16/24 14:07 Freq: Status: Active Protocol: Document 03/22/24 09:01 [facility] (Rec: 03/22/24 09:50 [facility] [id number]) Current Condition History of Current Condition History of Current Condition Pt reports when kay stands and charts she always has an annoying feeling in LB. SHe is sitting on the floor w/the kids and its hard to do good positioning. She did an 8 week post core class and feels liek that helped. DOesn' t feel like she has a diastasis. She had bad back pain pain w/BLE pain during . She has an annoying buzzing in L glute since. She has an IUD and hasn't bled. She had her period and had awful bakc pain. She does yoga 2x/week. She sits at a yoga ball to chart. She tries to work on posture. USed to be a runner. During training for a 1/2 marathon R knee pain and lat ITB> She tried dry needling that was helpful. She is no longer breast feeding for past 2 months. She has done some OMT that helped. She has an 8 month old and 3 year old. Back pain never went back to normal after 1 year old. Vaginal births for both w /o complications. No tearing. Denies incontinence. Has bladder prolapse. Bought an pelvic floor [employer] black trainer that hasn't used yet. Hemroids 2nd time. R knee bothers her if tries to run and starts as slight ache then goes to sharp pain. Treatment Goals Patient/Caregiver Goals Running, standing at work, sitting playing w/kids PT-OP-C Subjective Start: 03/16/24 14:07 Freq: Status: Active Protocol: Document 05/31/24 09:46 MB (Rec: 05/31/24 10:25 MB [id number]) OP-PT Subjective Patient Comments Patient Comments Pt had a great vacation. She has right hip weakness. PT-OP-G Mobility & Gait Start: 03/16/24 14:07 Freq: Status: Active Protocol: Document 03/22/24 09:01 [facility] (Rec: 03/22/24 09:50 [facility] [id number]) OP Gait Assessment Comments Gait Comments dec stance time on RLE w/lat shear of pelvis; more notable w/running PT-OP-J Posture/Palpation/Skin Start: 03/16/24 14:07 Freq: Status: Active Protocol: Document 05/25/24 07:33 [facility] (Rec: 05/25/24 08:18 [facility] [id number]) Posture Evaluation [facility] Postural Classification System Nilesh Postural Classifications Posterior/Posterior Vertical Compression Test 2 Elbow Flexion Test 3 Lumbar Protective Mechanism Left AP 1 Lumbar Protective Mechanism Right AP 3 Lumbar Protective Mechanism Left PA 3 Lumbar Protective Mechanism Right PA 3 PT-OP-K Range of Motion Start: 03/16/24 14:07 Freq: Status: Active Protocol: Document 03/22/24 09:01 [facility] (Rec: 03/22/24 09:50 [facility] [id number]) Lumbar Spine Range of Motion Lumbar Spine Active Percentage Flexion 50 Extension 75 Rotation Left 50 Rotation Right 75 Lateral Flexion Left 40 Lateral Flexion Right 50 Comments hinge L2, pain spine R SB PT-OP-L Special Tests Start: 03/16/24 14:07 Freq: Status: Active Protocol: Document 03/22/24 09:01 [facility] (Rec: 03/22/24 09:50 [facility] [id number]) Special Tests Lumbar Spine Special Tests march Test Results positive obers Test Results positive B (R>L) Straight Leg Raise Test Results R>L flexibility but both >90 deg Fredy Test Results R hip flexor and RF tightness Slump Test Results neg B, ext sit more tension R PT-OP-M Strength Start: 03/16/24 14:07 Freq: Status: Active Protocol: Document 05/25/24 07:33 [facility] (Rec: 05/25/24 08:18 [facility] [id number]) Hip Strength Hip Manual Muscle Testing Right Flexion (L2) 4 Good Extension (S1) 5 Normal Abduction 5 Normal Adduction 5 Normal External Rotation 5 Normal Internal Rotation 5 Normal Left Flexion (L2) 4 Good Extension (S1) 5 Normal Abduction 5 Normal Adduction 5 Normal External Rotation 5 Normal Internal Rotation 5 Normal Knee Strength Knee Manual Muscle Testing Right Flexion (S2) 4 Good Extension (L3) 5 Normal Left Flexion (S2) 5 Normal Extension (L3) 5 Normal Ankle/Foot Strength Ankle and Foot Manual Muscle Testing Right Dorsiflexion (L4) 5 Normal Plantarflexion (S1) 5 Normal Left Dorsiflexion (L4) 5 Normal Plantarflexion (S1) 5 Normal Comments PF tested seated PT-OP-Q Treatments Start: 03/16/24 14:07 Freq: Status: Active Protocol: Document 05/31/24 09:46 MB (Rec: 05/31/24 10:25 MB [id number]) Manual Therapy Treatment Consent Patient gave verbal consent for manual Yes treatment Other Other Manual Treatments Pt supine: positional release and right hip ER and IR MWM right iliacus, hip flexor, STM right TFL, rectus femoris, TrP right TFL, proximal vastus lateralis, STM right hip flexor and QL side lying and TrP treatment, also hip rotators and right hip rotators PT-OP-T Assessment and Plan Start: 03/16/24 14:07 Freq: Status: Active Protocol: Document 05/31/24 09:46 MB (Rec: 05/31/24 10:25 MB [id number]) Physical Therapy Assessment Goals posture Short Term Goal (STG) Pt will score at least 2/5 on VCT to show improved postural alignment STG Duration achieved 05/25 Gas Check Pad Maker Goal (LTG) Pt will score at least 4/5 on VCT to show improved postural alignment 05/25-2/5 LTG Duration 07/20 strength Short Term Goal (STG) Pt will be indep w/HEP STG Duration achieved-advancing as able [facility] Goal (LTG) Pt will score at least 4+/5 on all BLE MMT and at least 4/5 in all planes LPM to show improved stability. 05/25-improved significantly LTG Duration 07/20 exercise Short Term Goal (STG) Pt will be able to walk carrying kids w/o pain greater than 1/10 STG Duration achieved 05/25 [facility] Goal (LTG) Pt will be able to return to running w/o LBP or R knee pain 05/25-ran part of the way [place] mountain and felt ok LTG Duration 06/14/24 activity Short Term Goal (STG) Pt will be able to sit to play with kids on ground w/o pain greater than 1/10. 05/25-better, long period of time still does >20 min 08/10 STG Duration 05/04/24 [facility] Goal (LTG) Pt will be able to stand as needed at work w/o pain >/10. 05/25-better, occ days like wednesday it hurts LTG Duration 06/14/24 Assessment Summary Assessment Pt with increased tension right TFL, hip flexor, rectus femoris, vastus lateralis, hip rotators. Pt tolerates treatment well and monitor response. Physical Therapy Plan Frequency and Duration Frequency of Treatment 1-2x/wk Duration of treatment (weeks) 8 Plan of Care Start Date 05/25/24 Plan of Care End Date 07/20/24 Therapeutic Interventions Therapeutic Interventions Balance Training,Gait Training ,Home Exercise Program,Joint Mobilizations,Manual Therapy, Neuromuscular Re-education, Patient/Caregiver Education, Self-Care/Home Management,Soft Tissue Mobilization,Taping, Therapeutic Activities, Therapeutic Exercises Modalities Cold Pack/Ice Massage,Electric Stimulation,Hot Packs Next Visit Focus/Plan Next Note Type Treatment Note Next Visit Plan Con't per POC: work on SL activities for return to running, PNF for LE facilitation, innominate and sacral mobilizations, coccyx assessment and mobilization, STM to back and glutes and ITB and teach self release for glutes and ITB and quad, visceral mobs, work on release to improve alignment of spine in standing
--- NOTE | 2024-06-21 09:45 | PT.OTN ---
Current Diagnoses Pain in right knee (06/21/24) Pain in thoracic spine (06/21/24) Dorsalgia, unspecified (06/21/24) Weakness (06/21/24) Physical Therapy Treatment Note PT-OP-A Visit Information Start: 03/16/24 14:07 Freq: Status: Active Protocol: Document 06/21/24 09:01 MB (Rec: 06/21/24 09:45 MB [id number]) Out-Patient Physical Therapy Visit Information Visit Information Visit Type Treatment Note Visit Note 60 visits per year Visit Start Time 09:01 Visit Stop Time 09:41 Visit Number 9 Number of INTELLIGENCE SUPPORT OFFICER Visits 0 Precautions Precautions Lumbar x-ray 03/28/24: Degenerative change. Anterior wedging at L1 is likely chronic in nature given the presence of a Schmorl's node. However, if there is a history of recent trauma, acute compression deformity could be considered in the differential. PT-OP-B Current Condition Start: 03/16/24 14:07 Freq: Status: Active Protocol: Document 03/22/24 09:01 [facility] (Rec: 03/22/24 09:50 [facility] [id number]) Current Condition History of Current Condition History of Current Condition Pt reports when kay stands and charts she always has an annoying feeling in LB. SHe is sitting on the floor w/the kids and its hard to do good positioning. She did an 8 week post core class and feels liek that helped. DOesn' t feel like she has a diastasis. She had bad back pain pain w/BLE pain during . She has an annoying buzzing in L glute since. She has an IUD and hasn't bled. She had her period and had awful bakc pain. She does yoga 2x/week. She sits at a yoga ball to chart. She tries to work on posture. USed to be a runner. During training for a 1/2 marathon R knee pain and lat ITB> She tried dry needling that was helpful. She is no longer breast feeding for past 2 months. She has done some OMT that helped. She has an 8 month old and 3 year old. Back pain never went back to normal after 1 year old. Vaginal births for both w /o complications. No tearing. Denies incontinence. Has bladder prolapse. Bought an pelvic floor technical trainer that hasn't used yet. Hemroids 2nd time. R knee bothers her if tries to run and starts as slight ache then goes to sharp pain. Treatment Goals Patient/Caregiver Goals Running, standing at work, sitting playing w/kids PT-OP-C Subjective Start: 03/16/24 14:07 Freq: Status: Active Protocol: Document 06/21/24 09:01 MB (Rec: 06/21/24 09:45 MB [id number]) OP-PT Subjective Patient Comments Patient Comments Pt states that her back pain is gone. She con't to have right ITB pain to lateral right knee pain with chasing daughter in the house. PT-OP-G Mobility & Gait Start: 03/16/24 14:07 Freq: Status: Active Protocol: Document 03/22/24 09:01 [facility] (Rec: 03/22/24 09:50 [facility] [id number]) OP Gait Assessment Comments Gait Comments dec stance time on RLE w/lat shear of pelvis; more notable w/running PT-OP-J Posture/Palpation/Skin Start: 03/16/24 14:07 Freq: Status: Active Protocol: Document 05/25/24 07:33 [facility] (Rec: 05/25/24 08:18 [facility] [id number]) Posture Evaluation Nilesh Postural Classification System Nilesh Postural Classifications Posterior/Posterior Vertical Compression Test 2 Elbow Flexion Test 3 Lumbar Protective Mechanism Left AP 1 Lumbar Protective Mechanism Right AP 3 Lumbar Protective Mechanism Left PA 3 Lumbar Protective Mechanism Right PA 3 PT-OP-K Range of Motion Start: 03/16/24 14:07 Freq: Status: Active Protocol: Document 03/22/24 09:01 [facility] (Rec: 03/22/24 09:50 [facility] [id number]) Lumbar Spine Range of Motion Lumbar Spine Active Percentage Flexion 50 Extension 75 Rotation Left 50 Rotation Right 75 Lateral Flexion Left 40 Lateral Flexion Right 50 Comments hinge L2, pain spine R SB PT-OP-L Special Tests Start: 03/16/24 14:07 Freq: Status: Active Protocol: Document 03/22/24 09:01 [facility] (Rec: 03/22/24 09:50 [facility] [id number]) Special Tests Lumbar Spine Special Tests march Test Results positive obers Test Results positive B (R>L) Straight Leg Raise Test Results R>L flexibility but both >90 deg Fredy Test Results R hip flexor and RF tightness Slump Test Results neg B, ext sit more tension R PT-OP-M Strength Start: 03/16/24 14:07 Freq: Status: Active Protocol: Document 05/25/24 07:33 [facility] (Rec: 05/25/24 08:18 [facility] [id number]) Hip Strength Hip Manual Muscle Testing Right Flexion (L2) 4 Good Extension (S1) 5 Normal Abduction 5 Normal Adduction 5 Normal External Rotation 5 Normal Internal Rotation 5 Normal Left Flexion (L2) 4 Good Extension (S1) 5 Normal Abduction 5 Normal Adduction 5 Normal External Rotation 5 Normal Internal Rotation 5 Normal Knee Strength Knee Manual Muscle Testing Right Flexion (S2) 4 Good Extension (L3) 5 Normal Left Flexion (S2) 5 Normal Extension (L3) 5 Normal Ankle/Foot Strength Ankle and Foot Manual Muscle Testing Right Dorsiflexion (L4) 5 Normal Plantarflexion (S1) 5 Normal Left Dorsiflexion (L4) 5 Normal Plantarflexion (S1) 5 Normal Comments PF tested seated PT-OP-Q Treatments Start: 03/16/24 14:07 Freq: Status: Active Protocol: Document 06/21/24 09:01 MB (Rec: 06/21/24 09:45 MB [id number]) Therapeutic Exercises Standing Exercises Hip abduction crab walking Standing Exercise Name HEP and pt refuses handout Resistance Level 2 band around knees and ankles Comments Side stepping, back stepping and forward stepping around [place] at home Manual Therapy Treatment Consent Patient gave verbal consent for manual Yes treatment Other Other Manual Treatments Pt in side lying: STM and positional release right hip and thigh musculature: Trp right glute med, TFL, vastus lateralis posterior, MWM vastus and ITB with pressure over fascia and active knee movement, pt in supine: MWM right rectus and hamstrings with ROM knee flexion and extension, knee extension isometric in supine with STM rectus PT-OP-T Assessment and Plan Start: 03/16/24 14:07 Freq: Status: Active Protocol: Document 06/21/24 09:01 MB (Rec: 06/21/24 09:45 MB [id number]) Physical Therapy Assessment Goals posture Short Term Goal (STG) Pt will score at least 2/5 on VCT to show improved postural alignment STG Duration achieved 05/25 Nursing Home Goal (LTG) Pt will score at least 4/5 on VCT to show improved postural alignment 05/25-06/07 LTG Duration 07/20 strength Short Term Goal (STG) Pt will be indep w/HEP STG Duration achieved-advancing as able Legal Archivist Goal (LTG) Pt will score at least 4+/5 on all BLE MMT and at least 4/5 in all planes LPM to show improved stability. 05/25-improved significantly LTG Duration 07/20 exercise Short Term Goal (STG) Pt will be able to walk carrying kids w/o pain greater than 1/10 STG Duration achieved 05/25 Legal Archivist Goal (LTG) Pt will be able to return to running w/o LBP or R knee pain 05/25-ran part of the way [place] a mountain and felt ok LTG Duration 06/14/24 activity Short Term Goal (STG) Pt will be able to sit to play with kids on ground w/o pain greater than 1/10. 05/25-better, long period of time still does >20 min 08/10 STG Duration 05/04/24 Legal Archivist Goal (LTG) Pt will be able to stand as needed at work w/o pain >1/10. 05/25-better, occ days like wednesday it hurts LTG Duration 06/14/24 Assessment Summary Assessment Progressed hip strengthening today in standing with bands. Pt tolerates manual work well. She feels good with her two remaining treatments. Physical Therapy Plan Frequency and Duration Frequency of Treatment 1-2x/wk Duration of treatment (weeks) 8 Plan of Care Start Date 05/25/24 Plan of Care End Date 07/20/24 Therapeutic Interventions Therapeutic Interventions Balance Training,Gait Training ,Home Exercise Program,Joint Mobilizations,Manual Therapy, Neuromuscular Re-education, Patient/Caregiver Education, Self-Care/Home Management,Soft Tissue Mobilization,Taping, Therapeutic Activities, Therapeutic Exercises Modalities Cold Pack/Ice Massage,Electric Stimulation,Hot Packs Next Visit Focus/Plan Next Note Type Treatment Note Next Visit Plan Two more treatments, consider giving 1-2 more exercises, check in about crab walking with bands. Ask about hula hooping. Con't per POC: work on SL activities for return to running, PNF for LE facilitation, innominate and sacral mobilizations, coccyx assessment and mobilization, STM to back and glutes and ITB and teach self release for glutes and ITB and quad, visceral mobs, work on release to improve alignment of spine in standing
--- NOTE | 2024-06-21 09:46 | PT.OTN ---
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 Anterior wedging at L1 is likely chronic in nature given the presence of a Schmorl's node. However, if there is a history of recent trauma, acute compression deformity could be considered in the differential. PT-OP-B Current Condition Start: 03/16/24 14:07 Freq: Status: Active Protocol: Document 03/22/24 09:01 [facility] (Rec: 03/22/24 09:50 [facility] [id number]) Current Condition History of Current Condition History of Current Condition Pt reports when kay stands and charts she always has an annoying feeling in LB. SHe is sitting on the floor w/the kids and its hard to do good positioning. She did an 8 week post core class and feels liek that helped. DOesn' t feel like she has a diastasis. She had bad back pain pain w/BLE pain during . She has an annoying buzzing in L glute since. She has an IUD and hasn't bled. She had her period and had awful bakc pain. She does yoga 2x/week. She sits at a yoga ball to chart. She tries to work on posture. USed to be a runner. During training for a 1/2 marathon R knee pain and lat ITB> She tried dry needling that was helpful. She is no longer breast feeding for past 2 months. She has done some OMT that helped. She has an 8 month old and 3 year old. Back pain never went back to normal after 1 year old. Vaginal births for both w /o complications. No tearing. Denies incontinence. Has bladder prolapse. Bought an pelvic floor computer technology trainer that hasn't used yet. Hemroids 2nd time. R knee bothers her if tries to run and starts as slight ache then goes to sharp pain. Treatment Goals Patient/Caregiver Goals Running, standing at work, sitting playing w/kids PT-OP-C Subjective Start: 03/16/24 14:07 Freq: Status: Active Protocol: Document 06/21/24 09:01 MB (Rec: 06/21/24 09:45 MB [id number]) OP-PT Subjective Patient Comments Patient Comments Pt states that her back pain is gone. She con't to have right ITB pain to lateral right knee pain with chasing daughter in the house. PT-OP-G Mobility & Gait Start: 03/16/24 14:07 Freq: Status: Active Protocol: Document 03/22/24 09:01 [facility] (Rec: 03/22/24 09:50 [facility] [id number]) OP Gait Assessment Comments Gait Comments dec stance time on RLE w/lat shear of pelvis; more notable w/running PT-OP-J Posture/Palpation/Skin Start: 03/16/24 14:07 Freq: Status: Active Protocol: Document 05/25/24 07:33 [facility] (Rec: 05/25/24 08:18 [facility] [id number]) Posture Evaluation [facility] Postural Classification System [facility] Postural Classifications Posterior/Posterior Vertical Compression Test 2 Elbow Flexion Test 3 Lumbar Protective Mechanism Left AP 1 Lumbar Protective Mechanism Right AP 3 Lumbar Protective Mechanism Left PA 3 Lumbar Protective Mechanism Right PA 3 PT-OP-K Range of Motion Start: 03/16/24 14:07 Freq: Status: Active Protocol: Document 03/22/24 09:01 [facility] (Rec: 03/22/24 09:50 [facility] [id number]) Lumbar Spine Range of Motion Lumbar Spine Active Percentage Flexion 50 Extension 75 Rotation Left 50 Rotation Right 75 Lateral Flexion Left 40 Lateral Flexion Right 50 Comments hinge L2, pain spine R SB PT-OP-L Special Tests Start: 03/16/24 14:07 Freq: Status: Active Protocol: Document 03/22/24 09:01 [facility] (Rec: 03/22/24 09:50 [facility] [id number]) Special Tests Lumbar Spine Special Tests march Test Results positive obers Test Results positive B (R>L) Straight Leg Raise Test Results R>L flexibility but both >90 deg Fredy Test Results R hip flexor and RF tightness Slump Test Results neg B, ext sit more tension R PT-OP-M Strength Start: 03/16/24 14:07 Freq: Status: Active Protocol: Document 05/25/24 07:33 [facility] (Rec: 05/25/24 08:18 [facility] [id number]) Hip Strength Hip Manual Muscle Testing Right Flexion (L2) 4 Good Extension (S1) 5 Normal Abduction 5 Normal Adduction 5 Normal External Rotation 5 Normal Internal Rotation 5 Normal Left Flexion (L2) 4 Good Extension (S1) 5 Normal Abduction 5 Normal Adduction 5 Normal External Rotation 5 Normal Internal Rotation 5 Normal Knee Strength Knee Manual Muscle Testing Right Flexion (S2) 4 Good Extension (L3) 5 Normal Left Flexion (S2) 5 Normal Extension (L3) 5 Normal Ankle/Foot Strength Ankle and Foot Manual Muscle Testing Right Dorsiflexion (L4) 5 Normal Plantarflexion (S1) 5 Normal Left Dorsiflexion (L4) 5 Normal Plantarflexion (S1) 5 Normal Comments PF tested seated PT-OP-Q Treatments Start: 03/16/24 14:07 Freq: Status: Active Protocol: Document 06/21/24 09:01 MB (Rec: 06/21/24 09:45 MB [id number]) Therapeutic Exercises Standing Exercises Hip abduction crab walking Standing Exercise Name HEP and pt refuses handout Resistance Level 2 band around knees and ankles Comments Side stepping, back stepping and forward stepping around island at home Manual Therapy Treatment Consent Patient gave verbal consent for manual Yes treatment Other Other Manual Treatments Pt in side lying: STM and positional release right hip and thigh musculature: Trp right glute med, TFL, vastus lateralis posterior, MWM vastus and ITB with pressure over fascia and active knee movement, pt in supine: MWM right rectus and hamstrings with ROM knee flexion and extension, knee extension isometric in supine with STM rectus PT-OP-T Assessment and Plan Start: 03/16/24 14:07 Freq: Status: Active Protocol: Document 06/21/24 09:01 MB (Rec: 06/21/24 09:45 MB [id number]) Physical Therapy Assessment Goals posture Short Term Goal (STG) Pt will score at least 2/5 on VCT to show improved postural alignment STG Duration achieved 05/25 Assisted Goal (LTG) Pt will score at least 4/5 on VCT to show improved postural alignment 05/25-06/07 LTG Duration 07/20 strength Short Term Goal (STG) Pt will be indep w/HEP STG Duration achieved-advancing as able Order Entry Specialist Goal (LTG) Pt will score at least 4+/5 on all BLE MMT and at least 4/5 in all planes LPM to show improved stability. 05/25-improved significantly LTG Duration 07/20 exercise Short Term Goal (STG) Pt will be able to walk carrying kids w/o pain greater than 1/10 STG Duration achieved 05/25 Order Entry Specialist Goal (LTG) Pt will be able to return to running w/o LBP or R knee pain 05/25-ran part of the way [place] a mountain and felt ok LTG Duration 06/14/24 activity Short Term Goal (STG) Pt will be able to sit to play with kids on ground w/o pain greater than 1/10. 05/25-better, long period of time still does >20 min 08/10 STG Duration 05/04/24 Order Entry Specialist Goal (LTG) Pt will be able to stand as needed at work w/o pain >1/10. 05/25-better, occ days like wednesday it hurts LTG Duration 06/14/24 Assessment Summary Assessment Progressed hip strengthening today in standing with bands. Pt tolerates manual work well. She feels good with her two remaining treatments. Physical Therapy Plan Frequency and Duration Frequency of Treatment 1-2x/wk Duration of treatment (weeks) 8 Plan of Care Start Date 05/25/24 Plan of Care End Date 07/20/24 Therapeutic Interventions Therapeutic Interventions Balance Training,Gait Training ,Home Exercise Program,Joint Mobilizations,Manual Therapy, Neuromuscular Re-education, Patient/Caregiver Education, Self-Care/Home Management,Soft Tissue Mobilization,Taping, Therapeutic Activities, Therapeutic Exercises Modalities Cold Pack/Ice Massage,Electric Stimulation,Hot Packs Next Visit Focus/Plan Next Note Type Treatment Note Next Visit Plan Two more treatments, consider giving 1-2 more exercises, check in about crab walking with bands. Ask about hula hooping. Con't per POC: work on SL activities for return to running, PNF for LE facilitation, innominate and sacral mobilizations, coccyx assessment and mobilization, STM to back and glutes and ITB and teach self release for glutes and ITB and quad, visceral mobs, work on release to improve alignment of spine in standing
--- NOTE | 2024-10-02 09:37 | PT.OPDS ---
Current Diagnoses Pain in right knee (06/21/24) Pain in thoracic spine (06/21/24) Dorsalgia, unspecified (06/21/24) Weakness (06/21/24) Visit Care Team Role Provider Type Era Nuno MD Attending Provider Physician Family Provider Primary Care Provider Referring Provider Specialty: Family Practice [employer] [facility] [place], [address] Fax: Email: [email or web address] Visit Number Visit Number 9 Discharge Summary PT-OP-B Current Condition Start: 03/16/24 14:07 Freq: Status: Active Protocol: Document 03/22/24 09:01 [facility] (Rec: 03/22/24 09:50 [facility] [id number]) Current Condition History of Current Condition History of Current Condition Pt reports when kay stands and charts she always has an annoying feeling in LB. SHe is sitting on the floor w/the [place] and its hard to do good positioning. She did an 8 week post core class and feels liek that helped. DOesn' t feel like she has a diastasis. She had bad back pain pain w/BLE pain during . She has an annoying buzzing in L glute since. She has an IUD and hasn't bled. She had her period and had awful bakc pain. She does yoga 2x/week. She sits at a yoga ball to chart. She tries to work on posture. USed to be a runner. During training for a 1/2 marathon R knee pain and lat ITB> She tried dry needling that was helpful. She is no longer breast feeding for past 2 months. She has done some OMT that helped. She has an 8 month old and 3 year old. Back pain never went back to normal after 1 year old. Vaginal births for both w /o complications. No tearing. Denies incontinence. Has bladder prolapse. Bought an pelvic floor aed trainer that hasn't used yet. Hemroids 2nd time. R knee bothers her if tries to run and starts as slight ache then goes to sharp pain. Treatment Goals Patient/Caregiver Goals Running, standing at work, sitting playing w/kids PT-OP-C Subjective Start: 03/16/24 14:07 Freq: Status: Active Protocol: Document 06/21/24 09:01 MB (Rec: 06/21/24 09:45 MB [id number]) OP-PT Subjective Patient Comments Patient Comments Pt states that her back pain is gone. She con't to have right ITB pain to lateral right knee pain with chasing daughter in the house. PT-OP-G Mobility & Gait Start: 03/16/24 14:07 Freq: Status: Active Protocol: Document 03/22/24 09:01 [facility] (Rec: 03/22/24 09:50 [facility] [id number]) OP Gait Assessment Comments Gait Comments dec stance time on RLE w/lat shear of pelvis; more notable w/running PT-OP-J Posture/Palpation/Skin Start: 03/16/24 14:07 Freq: Status: Active Protocol: Document 05/25/24 07:33 [facility] (Rec: 05/25/24 08:18 [facility] [id number]) Posture Evaluation [facility] Postural Classification System [facility] Postural Classifications Posterior/Posterior Vertical Compression Test 2 Elbow Flexion Test 3 Lumbar Protective Mechanism Left AP 1 Lumbar Protective Mechanism Right AP 3 Lumbar Protective Mechanism Left PA 3 Lumbar Protective Mechanism Right PA 3 PT-OP-K Range of Motion Start: 03/16/24 14:07 Freq: Status: Active Protocol: Document 03/22/24 09:01 [facility] (Rec: 03/22/24 09:50 [facility] [id number]) Lumbar Spine Range of Motion Lumbar Spine Active Percentage Flexion 50 Extension 75 Rotation Left 50 Rotation Right 75 Lateral Flexion Left 40 Lateral Flexion Right 50 Comments hinge L2, pain spine R SB PT-OP-L Special Tests Start: 03/16/24 14:07 Freq: Status: Active Protocol: Document 03/22/24 09:01 [facility] (Rec: 03/22/24 09:50 [facility] [id number]) Special Tests Lumbar Spine Special Tests march Test Results positive obers Test Results positive B (R>L) Straight Leg Raise Test Results R>L flexibility but both >90 deg Fredy Test Results R hip flexor and RF tightness Slump Test Results neg B, ext sit more tension R PT-OP-M Strength Start: 03/16/24 14:07 Freq: Status: Active Protocol: Document 05/25/24 07:33 [facility] (Rec: 05/25/24 08:18 [facility] [id number]) Hip Strength Hip Manual Muscle Testing Right Flexion (L2) 4 Good Extension (S1) 5 Normal Abduction 5 Normal Adduction 5 Normal External Rotation 5 Normal Internal Rotation 5 Normal Left Flexion (L2) 4 Good Extension (S1) 5 Normal Abduction 5 Normal Adduction 5 Normal External Rotation 5 Normal Internal Rotation 5 Normal Knee Strength Knee Manual Muscle Testing Right Flexion (S2) 4 Good Extension (L3) 5 Normal Left Flexion (S2) 5 Normal Extension (L3) 5 Normal Ankle/Foot Strength Ankle and Foot Manual Muscle Testing Right Dorsiflexion (L4) 5 Normal Plantarflexion (S1) 5 Normal Left Dorsiflexion (L4) 5 Normal Plantarflexion (S1) 5 Normal Comments PF tested seated PT-OP-T Assessment and Plan Start: 03/16/24 14:07 Freq: Status: Active Protocol: Document 10/02/24 09:34 [facility] (Rec: 10/02/24 09:37 [facility] [id number]) Physical Therapy Assessment Goals posture Short Term Goal (STG) Pt will score at least 2/5 on VCT to show improved postural alignment STG Duration achieved 05/25 Casing Wringer Operator Goal (LTG) Pt will score at least 4/5 on VCT to show improved postural alignment 05/25-06/07 LTG Duration 07/20 strength Short Term Goal (STG) Pt will be indep w/HEP STG Duration achieved-advancing as able Casing Wringer Operator Goal (LTG) Pt will score at least 4+/5 on all BLE MMT and at least 4/5 in all planes LPM to show improved stability. 05/25-improved significantly LTG Duration 07/20 exercise Short Term Goal (STG) Pt will be able to walk carrying kids w/o pain greater than 1/10 STG Duration achieved 05/25 Alf Goal (LTG) Pt will be able to return to running w/o LBP or R knee pain 05/25-ran part of the way [place] a mountain and felt ok LTG Duration 06/14/24 activity Short Term Goal (STG) Pt will be able to sit to play with kids on ground w/o pain greater than 1/10. 05/25-better, long period of time still does >20 min 4/10 STG Duration 05/04/24 Alf Goal (LTG) Pt will be able to stand as needed at work w/o pain >05/12. 05/25-better, occ days like wednesday it hurts LTG Duration 06/14/24 Assessment Summary Assessment Pt made progress w/PT but has not been seen for 3 months. Cancelled last 3 visits of PT and did not reschedule. DC d/t no longer attending PT. Physical Therapy Plan Discharge Physical Therapy Discharge Reasons No Longer Attending PT
== END 2024-10-02 15:16 | disposition home or self-care (01) ==
LOC: PHYS 09:00
PROVIDERS: Family Provider Family Medicine; PCP Family Medicine; Referring Provider Family Medicine; Visit Provider Family Medicine
DX: M54.9 Dorsalgia, unspecified (principal); M54.6 Pain in thoracic spine; M25.561 Pain in right knee; R53.1 Weakness
CPT/HCPCS: 97110; 97140; 97162; 97530; 97535